=== PATIENT | female | born 1990 | race Caucasian/White ===

== ENCOUNTER 2017-01-27 12:21 | Emergency (ER) | payer MEDICAID ==
[2017-01-27 12:59] VITALS: BP 127/73
[2017-01-27] MEDS ORDERED: diphenhydrAMINE 50 MG/ML SDV IM ONE (13:21)
[2017-01-27] MEDS ORDERED: Ketorolac 60 MG/2 ML SDV IM ONE (13:21)
[2017-01-27] MEDS ORDERED: Ondansetron 4 MG Tab.DIS PO ONE (13:22)
--- NOTE | 2017-01-27 13:23 | EDM.PDOC ---
ED HPI HEADACHE COMPLAINT - General Chief Complaint: Headache Stated Complaint: Headache Time Seen by Provider: 01/27/17 13:00 Source of Information: Reports: Patient, RN notes reviewed History Limitations: Reports: No limitations - History of Present Illness INITIAL COMMENTS - FREE TEXT/NARRATIVE: 26 year old female presents to the ED with a 24 hour history of right sided headache, located behind her right eye and radiates around the right side of her head. She rates the pain 8/10. She has tried several OTC medications without relief. She has associated nausea, photophobia and phonophobia. No vomiting, weakness in extremities, loss of balance, vision changes, fever, chills, sinus problems, sore throat, recent illness. The headache came on gradually. She has a history of migraine headaches. - Related Data Allergies/ADRs: Allergies Allergy/AdvReac Type Severity Reaction Status Date / Time amoxicillin [Amoxicillin] Allergy Unknown Rash Verified 01/27/17 12:59 Penicillins Allergy Unknown Hives Verified 01/27/17 12:59 cefdinir Allergy Redness Verified 01/27/17 12:59 Home Meds: Home Meds ARIPiprazole [Abilify] 1 tab PO DAILY 01/27/17 [History] Omeprazole Magnesium [Prilosec Otc] 1 tab PO DAILY 01/27/17 [History] buPROPion [Wellbutrin] 1 tab PO DAILY 01/27/17 [History] Past Medical History - Past Health History Medical/Surgical History: Denies Medical/Surgical History HEENT History: Reports: Sinusitis Respiratory History: Reports: Asthma Gastrointestinal History: Reports: Helicobacter pylori, PUD Other Gastrointestinal History: history of stomach ulcer treated with omeprozale Genitourinary History: Reports: STD Other Genitourinary History: Positive HPV, history of chlamydia. 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 OB/BYN History: 02/12/2014 & 02-24-2016 Neurological History: Reports: Concussion Psychiatric History: Reports: Addiction, Anxiety, Bipolar, Depression Other Psychiatric History: Pt is on an antidepressant - Infectious Disease History Infectious Disease History: Reports: Human papilloma virus (HPV), Other (see below) - Past Surgical History HEENT Surgical History: Reports: Adenoidectomy, Naso-sinus surgery, Oral surgery , Tonsillectomy Female Surgical History: Reports: section Musculoskeletal Surgical History: Reports: Other (see below) Other Musculoskeletal Surgeries/Procedures:: cyst removed from wrist Social & Family History - Tobacco Use Smoking Status *Q: Current Every Day Smoker Years of Tobacco use: 8 Packs/Tins Daily: 0.5 Used Tobacco, but Quit: No Second Hand Smoke Exposure: Yes - Caffeine Use Caffeine Use: Reports: Coffee, Soda - Alcohol Use Days Per Week of Alcohol Use: 0 - Recreational Drug Use Recreational Drug Use: No Drug Use in Last 12 Months: No Recreational Drug Type: Reports: Cocaine, Ecstasy, Marijuana/Hashish, Methamphetamine, Oxycodone. Denies: Heroin Recreational Drug Use Frequency: Not Used In Over 6 Months - Sexual History Other Sexual History Comment: Has IUD - Living Situation & Occupation Living situation: Reports: single, with family (Mother, baby) Occupation: unemployed ED ROS GENERAL - Review of Systems Review Of Systems: See Below Constitutional: Reports: no symptoms. Denies: fever, chills HEENT: Reports: No symptoms. Denies: Eye pain, Sinus problem, Throat pain, Vision change Respiratory: Reports: No Symptoms. Denies: Shortness of Breath Cardiovascular: Reports: No symptoms. Denies: Chest pain GI/Abdominal: Reports: No symptoms, Nausea. Denies: Vomiting Musculoskeletal: Reports: no symptoms. Denies: neck pain Neurological: Reports: Headache. Denies: Confusion, Numbness, Syncope, Tingling , Difficulty Walking, Weakness - Physical Exam Exam: See Below Exam Limited By: No limitations General Appearance: alert, WD/WN, no apparent distress Eye Exam: bilateral eye: EOMI, normal inspection, PERRL Throat/Mouth: Normal inspection, Normal oropharynx Head Exam: atraumatic, normocephalic Neck: normal inspection, supple, non-tender, full range of motion. No: tender midline Respiratory/Chest: no respiratory distress, lungs clear, normal breath sounds Cardiovascular: regular rate, rhythm Neuro Exam (Abbreviated): alert, oriented, normal cognition, normal gait, no motor/sensory deficits, other (cerebellar testing intact) Course - Vital Signs Last Recorded V/S: Last Vital Signs Temp 97.6 F 01/27/17 12:55 Pulse 100 01/27/17 12:55 Resp 16 01/27/17 12:55 BP 127/73 01/27/17 12:55 Pulse Ox 100 01/27/17 12:55 - Orders/Labs/Meds Meds: Medications Discontinued Medications Generic Name Dose Route Start Last Admin Trade Name Romana PRN Reason Stop Dose Admin Diphenhydramine HCl 50 mg 01/27/17 13:21 01/27/17 13:44 Benadryl IM 01/27/17 13:22 50 mg ONETIME ONE Administration Ketorolac Tromethamine 60 mg 01/27/17 13:21 01/27/17 13:42 Toradol IM 01/27/17 13:22 60 mg ONETIME ONE Administration Ondansetron HCl 4 mg 01/27/17 13:22 01/27/17 13:42 Zofran Odt PO 01/27/17 13:23 4 mg ONETIME ONE Administration - Re-Assessments/Exams Free Text/Narrative Re-Assessment/Exam: Symptoms significantly improved with Toradol, Benadryl, and Zofran. Will discharge home. Encouraged to return if symptoms worsen. She has a ride home. Discharge instructions as documented. Departure - Departure Time of Disposition: 14:41 Disposition: Home, Self-Care 01 Condition: good Clinical Impression: Migraine Instructions: Migraine Headache, [id number] Referrals: Megan Jeffries PA-C [Primary Care Provider] - Forms: ED Department Discharge Additional Instructions: Migraine Go home and rest in a dark quiet environment today Drink plenty of clear fluids to stay hydrated Caffeine can help alleviate headaches if taken at onset Tylenol or Ibuprofen as needed for less severe pain Return to ER if your symptoms do not resolve or worsen No driving today due to sedating medications Often times, migraines are triggered by the foods we eat. Some common migraine triggers are: Alcohol Caffeine (or lack of caffeine if you drink caffeine daily) MSG (monosodium glutamate, food additive) Artificial sweeteners like aspartame Aged foods like cheese and preserved meats
== END 2017-01-27 14:45 | disposition home or self-care (01) ==
LOC: JD.ED 12:21
DX: G43.909 Migraine, unspecified, not intractable, without status migrainosus (principal); F17.210 Nicotine dependence, cigarettes, uncomplicated; Z98.890 Other specified postprocedural states; J45.909 Unspecified asthma, uncomplicated; F31.9 Bipolar disorder, unspecified; Z79.899 Other long term (current) drug therapy; Z88.0 Allergy status to penicillin; Z88.1 Allergy status to other antibiotic agents
CPT/HCPCS: 96372; 99284; A9270; J1200; J1885; 99283

== ENCOUNTER 2017-01-28 20:41 | Emergency (ER) | payer MEDICAID ==
[2017-01-28 20:56] VITALS: BP 129/79
--- NOTE | 2017-01-28 21:28 | EDM.PDOC ---
ED HPI HEADACHE COMPLAINT - General Chief Complaint: Headache Stated Complaint: HEADACHE POSS FEVER Time Seen by Provider: 01/28/17 21:03 Source of Information: Reports: Patient, Old records (ER visit 01-27-17) History Limitations: Reports: No limitations - History of Present Illness INITIAL COMMENTS - FREE TEXT/NARRATIVE: 26 year old female presents for evaluation and treatment of headache. Patient reports that the headache is an 8 or 9/10. She states it is located across her forehead and behind her eyes. Patient reports that this headache began on . She was seen in our ER yesterday. She was given Toradol, Benadryl and Zofran which relieved her symptoms. She states that she went home last night. She reports that last night she hit her head on the tailgate of her car. She did not experience a headache right away. She reports that her headache today began around noon. She states is similar to the headache she is yesterday however, it is worse. She reports associated symptoms of photophobia, phonophobia, dizziness and nausea. She denies any vomiting, double vision, cough , abdominal pain, diarrhea, urinary symptoms, neck pain or back pain. She states she has had a "fever" of 99.9 today. Treatment prior to arrival in the ER include Tylenol and Motrin. Patient reports her last menstrual period started 24 hours ago. She states that she bled for 24 hours before it subsided. 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 She had an hCG done which was negative at less than 1.0. She is currently on OCPs, however, she is unsure what type they are. 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 - Related Data Allergies/ADRs: Allergies Allergy/AdvReac Type Severity Reaction Status Date / Time amoxicillin [Amoxicillin] Allergy Unknown Rash Verified 01/28/17 20:56 Penicillins Allergy Unknown Hives Verified 01/28/17 20:56 cefdinir Allergy Redness Verified 01/28/17 20:56 Home Meds: Home Meds ARIPiprazole [Abilify] 1 tab PO DAILY 01/27/17 [History] Omeprazole Magnesium [Prilosec Otc] 1 tab PO DAILY 01/27/17 [History] buPROPion [Wellbutrin] 1 tab PO DAILY 01/27/17 [History] Past Medical History - Past Health History Medical/Surgical History: Denies Medical/Surgical History HEENT History: Reports: Sinusitis Respiratory History: Reports: Asthma Gastrointestinal History: Reports: Helicobacter pylori, PUD Other Gastrointestinal History: history of stomach ulcer treated with omeprozale Genitourinary History: Reports: STD Other Genitourinary History: Positive HPV, history of chlamydia. 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 OB/BYN History: 02/12/2014 & 02-24-2016 Neurological History: Reports: Concussion Psychiatric History: Reports: Addiction, Anxiety, Bipolar, Depression Other Psychiatric History: Pt is on an antidepressant - Infectious Disease History Infectious Disease History: Reports: Human papilloma virus (HPV), Other (see below) - Past Surgical History HEENT Surgical History: Reports: Adenoidectomy, Naso-sinus surgery, Oral surgery , Tonsillectomy Female Surgical History: Reports: section Musculoskeletal Surgical History: Reports: Other (see below) Other Musculoskeletal Surgeries/Procedures:: cyst removed from wrist Social & Family History - Family History Family Medical History: Noncontributory - Tobacco Use Smoking Status *Q: Current Every Day Smoker Years of Tobacco use: 8 Packs/Tins Daily: 0.5 Used Tobacco, but Quit: No Second Hand Smoke Exposure: Yes - Caffeine Use Caffeine Use: Reports: Coffee, Energy drinks, Soda - Alcohol Use Days Per Week of Alcohol Use: 0 - Recreational Drug Use Recreational Drug Use: No Drug Use in Last 12 Months: No Recreational Drug Type: Reports: Cocaine, Ecstasy, Marijuana/Hashish, Methamphetamine, Oxycodone. Denies: Heroin Recreational Drug Use Frequency: Not Used In Over 6 Months - Sexual History Other Sexual History Comment: Has IUD - Living Situation & Occupation Living situation: Reports: single, with family (Mother, baby) Occupation: unemployed ED ROS GENERAL - Review of Systems Review Of Systems: See Below Constitutional: Reports: fever (temp of 99.9), other (reports photophobia and phonophobia) HEENT: Reports: Vision change (blurry vision). Denies: Ear pain, Sinus problem , Throat pain Respiratory: Denies: Cough GI/Abdominal: Reports: Nausea. Denies: Abdominal pain, Constipation, Diarrhea, Vomiting : Reports: no symptoms. Denies: dysuria, hematuria Musculoskeletal: Denies: neck pain, back pain Neurological: Reports: Dizziness, Headache - Physical Exam Exam: See Below Exam Limited By: No limitations General Appearance: alert, WD/WN, no apparent distress Eye Exam: bilateral eye: PERRL Ears: normal external exam, normal canal, hearing grossly normal, normal TMs Nose: normal inspection Throat/Mouth: Normal inspection, Normal lips, Normal voice, No airway compromise Head Exam: scalp swelling. No: scalp lacerations, scalp abrasions, scalp hematoma, scalp tenderness, facial abrasions, facial ecchymosis, facial lacerations, facial swelling, facial tenderness Neck: normal inspection, supple, non-tender, full range of motion Respiratory/Chest: no respiratory distress, lungs clear, normal breath sounds Cardiovascular: normal peripheral pulses, regular rate, rhythm, no murmur GI/Abdominal: normal bowel sounds, soft, non tender Neuro Exam (Abbreviated): alert, oriented, normal cognition, normal gait Psychiatric: normal affect, normal mood Skin Exam: Warm, Dry, Normal color Course - Vital Signs Last Recorded V/S: Last Vital Signs Temp 37.6 C 01/28/17 20:51 Pulse 79 01/28/17 20:51 Resp 18 01/28/17 20:51 BP 129/79 01/28/17 20:51 Pulse Ox 99 01/28/17 20:51 - Orders/Labs/Meds Orders: Active Orders 24 hr Category Date Time Status Head wo Cont [CT] Stat Exams 01/28/17 21:21 Taken Meds: Medications Discontinued Medications Generic Name Dose Route Start Last Admin Trade Name Romana PRN Reason Stop Dose Admin Acetaminophen/Butalbital/Caffeine 1 tab 01/28/17 23:02 Fioricet 325-50-40 Mg PO 01/28/17 23:03 NOW STA Diphenhydramine HCl 50 mg 01/28/17 21:48 01/28/17 22:03 Benadryl IM 01/28/17 21:49 50 mg ONETIME ONE Administration Ketorolac Tromethamine 60 mg 01/28/17 21:48 01/28/17 22:01 Toradol IM 01/28/17 21:49 60 mg ONETIME ONE Administration Ondansetron HCl 4 mg 01/28/17 21:48 01/28/17 22:00 Zofran Odt PO 01/28/17 21:49 4 mg ONETIME ONE Administration Sumatriptan Succinate 25 mg 01/28/17 22:26 01/28/17 22:37 Imitrex PO 01/28/17 22:27 25 mg ONETIME ONE Administration - Radiology Interpretation Free Text/Narrative:: Head Ct without contrast impression per Vrad: No acute intracranial pathology. CT Results Date: 01/28/17 - Re-Assessments/Exams Free Text/Narrative Re-Assessment/Exam: 01/28/17 21:32 Given that the patient had head trauma last night and now has blurry vision, nausea and a headache not relieved by tylenol or ibuprofen I feel we should do a noncontrast head CT to ensure headache is not from trauma. 01/28/17 22:[address] results with the patient. IM toradol, benadryl and zofran ordered. 01/28/17 22:23 Headache now a 6/10. She is resting comfortably. No obvious distress. Will try imitrex for headache relief. Patient is on wellbutrin, therefore with the seizure threshold already lowered, I am hesistant to give haldol per our protocol. 01/28/17 23:06 Reports headache is a 6/10. She is resting comfortably. No obvious distress. She states she would like to try one more medication and will then go home. Will try fioricet. I will give her 1 pill to take at home. I searched the patient on the drug registry. 11 prescriptions for controlled substances within the last year (mostly benzos). Most recent Rx : xanax 0.5mg # 20 filled on 11-17-16. 01/28/17 23:28 Patient to be sent home with 1 tab of fioricet. Discharge instructions as documented. Departure - Departure Time of Disposition: 23:23 Disposition: Home, Self-Care 01 Condition: fair Clinical Impression: Tension headache Instructions: Tension Headache, [id number] Referrals: Megan Jeffries PA-C [Primary Care Provider] - Forms: ED Department Discharge Additional Instructions: Go home and rest in a dark quiet room. may take the Fioricet tonight if you continue to have headaches when you return home. Follow up with primary care provider if your symptoms continue. Please return to the ER should your symptoms change or worsen. - My Orders Last 24 Hours: My Active Orders 01/28/17 21:21 Head wo Cont [CT] Stat - Assessment/Plan Last 24 Hours: My Active Orders 01/28/17 21:21 Head wo Cont [CT] Stat
[2017-01-28] MEDS ORDERED: Ondansetron 4 MG Tab.DIS PO ONE (21:48)
[2017-01-28] MEDS ORDERED: Ketorolac 60 MG/2 ML SDV IM ONE (21:48)
[2017-01-28] MEDS ORDERED: diphenhydrAMINE 50 MG/ML SDV IM ONE (21:48)
[2017-01-28] MEDS ORDERED: SUMAtriptan 50 MG Tab PO ONE (22:26)
[2017-01-28] MEDS ORDERED: Acetaminophen/Butalbital/Caffeine 325-50-40 MG Tab PO STA (23:02)
--- NOTE | 2017-01-31 10:35 | CT ---
Head CT Technique: Multiple axial sections through the brain were obtained. Intravenous contrast was not utilized. Comparison: Previous head CT study of 10/17/12. Findings: Ventricles along with basal cisterns and sulci over the convexities are within normal limits for the patient's age. No abnormal parenchymal densities are seen. No evidence of intracranial hemorrhage. No midline shift or mass effect is seen. Bone window settings were reviewed which show the visualized sinuses to appear clear. No acute calvarial abnormality is identified. Impression: 1. Nothing acute identified on noncontrast head CT study. Findings are stable from previous exam. Diagnostic code #1 I agree with preliminary report issued by [facility] (report finalized on 01/28/17, 10:46 PM Central Time)
== END 2017-01-28 23:33 | disposition home or self-care (01) ==
LOC: JD.ED 20:41
DX: G44.209 Tension-type headache, unspecified, not intractable (principal); J45.909 Unspecified asthma, uncomplicated; F41.9 Anxiety disorder, unspecified; F31.9 Bipolar disorder, unspecified; F17.210 Nicotine dependence, cigarettes, uncomplicated; Z79.899 Other long term (current) drug therapy; Z88.1 Allergy status to other antibiotic agents; Z88.0 Allergy status to penicillin; Z98.890 Other specified postprocedural states
CPT/HCPCS: 70450; 96372; 99284; A9270; J1200; J1885; 99283

== ENCOUNTER 2017-02-02 19:14 | Emergency (ER) | payer MEDICAID ==
--- NOTE | 2017-02-02 19:24 | EDM.PDOC ---
ED HPI GENERAL MEDICAL PROBLEM - General Chief Complaint: Headache Stated Complaint: HEADACHE Time Seen by Provider: 02/02/17 19:24 - History of Present Illness INITIAL COMMENTS - FREE TEXT/NARRATIVE: 26-year-old female returns emergency room with a headache. This is mostly left- sided behind her eye. Patient is been having on-and-off headaches for the last couple weeks she had a head injury in between CT exam was normal. This headache has escalated over the last couple of days. Patient recently been seen in the clinic and has been started on Imitrex she used 2 doses earlier today without any success. Patient denies any fevers or chills has not had any other symptoms she has a little bit of neck discomfort but does not feel this is contributing to her headaches. Patient has some nausea without vomiting she has some photophobia. She seems to feel better with her neck flexed forward in the sitting position. Headache Pain Score (Numeric/FACES): 10 - Related Data Allergies Allergy/AdvReac Type Severity Reaction Status Date / Time amoxicillin [Amoxicillin] Allergy Unknown Rash Verified 02/02/17 19:23 Penicillins Allergy Unknown Hives Verified 02/02/17 19:23 cefdinir Allergy Redness Verified 02/02/17 19:23 Home Meds: Home Meds ARIPiprazole [Abilify] 1 tab PO DAILY 01/27/17 [History] Omeprazole Magnesium [Prilosec Otc] 1 tab PO DAILY 01/27/17 [History] buPROPion [Wellbutrin] 1 tab PO DAILY 01/27/17 [History] Past Medical History - Past Health History Medical/Surgical History: Denies Medical/Surgical History HEENT History: Reports: Sinusitis Respiratory History: Reports: Asthma Gastrointestinal History: Reports: Helicobacter pylori, PUD Other Gastrointestinal History: history of stomach ulcer treated with omeprozale Genitourinary History: Reports: STD Other Genitourinary History: Positive HPV, history of chlamydia. 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: 02/12/2014 & 02-24-2016 Neurological History: Reports: Concussion Psychiatric History: Reports: Addiction, Anxiety, Bipolar, Depression Other Psychiatric History: Pt is on an antidepressant - Infectious Disease History Infectious Disease History: Reports: Human papilloma virus (HPV), Other (see below) - Past Surgical History HEENT Surgical History: Reports: Adenoidectomy, Naso-sinus surgery, Oral surgery , Tonsillectomy Female Surgical History: Reports: section Musculoskeletal Surgical History: Reports: Other (see below) Other Musculoskeletal Surgeries/Procedures:: cyst removed from wrist Social & Family History - Family History Family Medical History: Noncontributory - Tobacco Use Smoking Status *Q: Current Every Day Smoker Years of Tobacco use: 8 Packs/Tins Daily: 0.5 Used Tobacco, but Quit: No Second Hand Smoke Exposure: Yes - Caffeine Use Caffeine Use: Reports: Coffee, Energy drinks, Soda - Alcohol Use Days Per Week of Alcohol Use: 0 - Recreational Drug Use Recreational Drug Use: No Drug Use in Last 12 Months: No Recreational Drug Type: Reports: Cocaine, Ecstasy, Marijuana/Hashish, Methamphetamine, Oxycodone. Denies: Heroin Recreational Drug Use Frequency: Not Used In Over 6 Months - Sexual History Other Sexual History Comment: Has IUD - Living Situation & Occupation Living situation: Reports: single, with family (Mother, baby) Occupation: unemployed ED [facility] GENERAL - Review of Systems Review Of Systems: See Below Constitutional: Reports: no symptoms. Denies: fever, chills HEENT: Reports: Other (Photophobia). Denies: Ear pain, Eye pain, Vertigo Respiratory: Reports: No Symptoms Cardiovascular: Reports: No symptoms Endocrine: Reports: no symptoms GI/Abdominal: Reports: No symptoms : Reports: no symptoms Musculoskeletal: Reports: no symptoms Neurological: Reports: Headache. Denies: Confusion, Dizziness, Numbness, Seizure, Syncope, Tingling, Tremors, Difficulty Walking, Weakness Psychiatric: Denies: Agitation, Anxiety, Depression - Physical Exam Exam: See Below Exam Limited By: No limitations General Appearance: alert, no apparent distress Eye Exam: bilateral eye: EOMI, normal inspection, PERRL Ears: normal external exam, normal canal, hearing grossly normal, normal TMs Nose: normal inspection, normal mucosa, no blood Throat/Mouth: Normal inspection, Normal lips, Normal teeth, Normal gums, Normal oropharynx, Normal voice, No airway compromise Head Exam: atraumatic, normocephalic Neck: normal inspection, supple, non-tender, full range of motion, other (He has some posterior muscle tightness but this is nontender she does not have tenderness at the base of skull with paraspinous muscles originate). No: lymphadenopathy (L), lymphadenopathy (R) Respiratory/Chest: no respiratory distress, lungs clear, normal breath sounds Cardiovascular: regular rate, rhythm, no edema, no murmur GI/Abdominal: Normal Bowel Sounds, Soft, Non-Tender Neuro Exam (Abbreviated): other (Cranial nerves II through XII grossly intact all muscle groups the upper and lower extremities are equal and appropriate bilaterally deep tendon reflexes are equal and appropriate at the brachial radialis and patella tendons bilaterally cerebellar testing is entirely within normal limits patient has a steady gait and moves without difficulty) Course - Vital Signs Last Recorded V/S: Last Vital Signs Temp 36.5 C 02/02/17 19:24 Pulse 100 02/02/17 19:24 Resp 18 02/02/17 19:24 BP 148/94 H 02/02/17 19:24 Pulse Ox 98 02/02/17 19:24 - Orders/Labs/Meds Meds: Medications Discontinued Medications Generic Name Dose Route Start Last Admin Trade Name Freq PRN Reason Stop Dose Admin Diphenhydramine HCl 50 mg 02/02/17 20:04 02/02/17 20:18 Benadryl IVPUSH 02/02/17 20:05 50 mg ONETIME ONE Administration Haloperidol Lactate 5 mg 02/02/17 20:55 02/02/17 20:58 Haldol IVPUSH 02/02/17 20:56 5 mg ONETIME ONE Administration Lactated Ringer's 1,000 mls @ 999 mls/hr 02/02/17 20:04 02/02/17 20:17 Ringers, Lactated IV 02/02/17 21:04 999 mls/hr .BOLUS ONE Administration Ketorolac Tromethamine 30 mg 02/02/17 20:48 Toradol IVPUSH 02/02/17 20:49 ONETIME ONE Ondansetron HCl 4 mg 02/02/17 20:04 02/02/17 20:17 Zofran IVPUSH 02/02/17 20:05 4 mg ONETIME ONE Administration - Re-Assessments/Exams Free Text/Narrative Re-Assessment/Exam: 02/02/17 20:49 Patient is getting some relief but not to care home. She had a negative hCG yesterday and another one of last week and she denies any recent sexual activity. We will give her a dose of Toradol. 02/02/17 20:55 Patient has not done well with Toradol in the past this will be DC'd. We'll try 5 mg of Haldol. 02/02/17 21:38 Patient received the Haldol and is doing much better she still is having a lot of sinus pressure she's got significant pain with percussion worse in the left maxillary and frontal regions patient is allergic to penicillin generally has done okay on Zithromax. Departure - Departure Time of Disposition: 21:39 Disposition: Home, Self-Care 01 Clinical Impression: Migraine, Sinusitis - Discharge Information Forms: ED Department Discharge Additional Instructions: Return to the emergency room with any questions or problems. Go home and get some sleep. You have been started on Zithromax. Take 2 pills this evening and one pill nightly until all gone. Followup in the clinic next week for recheck.
[2017-02-02 19:27] VITALS: BP 148/94
[2017-02-02] MEDS ORDERED: Lactated Ringers 1,000 ML IV ONE (20:04)
[2017-02-02] MEDS ORDERED: diphenhydrAMINE 50 MG/ML SDV IVPUSH ONE (20:04)
[2017-02-02] MEDS ORDERED: Ondansetron 4 MG/2 ML SDV IVPUSH ONE (20:04)
[2017-02-02] MEDS ORDERED: Ketorolac 30 MG/ML SDV IVPUSH ONE (20:48)
[2017-02-02] MEDS ORDERED: Haloperidol Lactate 5 MG/ML SDV IVPUSH ONE (20:55)
== END 2017-02-02 22:00 | disposition home or self-care (01) ==
LOC: JD.ED 19:14
DX: G43.909 Migraine, unspecified, not intractable, without status migrainosus (principal); J32.9 Chronic sinusitis, unspecified; J45.909 Unspecified asthma, uncomplicated; F31.9 Bipolar disorder, unspecified; F41.9 Anxiety disorder, unspecified; F17.210 Nicotine dependence, cigarettes, uncomplicated; Z79.899 Other long term (current) drug therapy; Z98.890 Other specified postprocedural states; Z88.0 Allergy status to penicillin; Z88.1 Allergy status to other antibiotic agents
CPT/HCPCS: 96361; 96374; 96375; 99284; J1200; J1630; J2405; J7120

== ENCOUNTER 2017-03-15 00:01 | Emergency (ER) | payer MEDICAID ==
[2017-03-15 00:17] VITALS: BP 126/81
--- NOTE | 2017-03-15 00:41 | EDM.PDOC ---
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 The pain has been coming and going. She describes it as "crampy". Pain is made worse if she lies in the left decubitus position, and with sexual intercourse. Nothing makes it better. She has had a decreased appetite, but no recent fever, nausea, vomiting, constipation, diarrhea, or urinary symptoms. The patient states that she is on a new control pill, which causes her to have some spotting nearly weekly. She is not sure when her last menstrual period was, stating that she had one day of spotting about 10 days ago. She states that she is compliant with her control pills. She states that her last sexual intercourse was 3 days ago, and prior to that about 3 weeks ago. She has not taken a home test. Her PCP is Megan Jeffries. Her pipe straightener is Dr. Ramirez. Right Lower Abdomen Pain Score (Numeric/FACES): 4 - Related Data Allergies Allergy/AdvReac Type Severity Reaction Status Date / Time amoxicillin [Amoxicillin] Allergy Unknown Rash Verified 03/15/17 00:17 Penicillins Allergy Unknown Hives Verified 03/15/17 00:17 cefdinir Allergy Redness Verified 03/15/17 00:17 Home Meds: Home Meds ARIPiprazole [Abilify] 1 tab PO DAILY 01/27/17 [History] Omeprazole Magnesium [Prilosec Otc] 1 tab PO DAILY 01/27/17 [History] buPROPion [Wellbutrin] 1 tab PO DAILY 01/27/17 [History] ALPRAZolam [Xanax] 0.5 mg PO DAILY 03/15/17 [History] Oral Contraceptive. 03/15/17 [History] Past Medical History Gastrointestinal History: Reports: PUD Genitourinary History: Reports: STD Other Genitourinary History: Positive HPV, history of chlamydia. 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 pylori) - Past Surgical History HEENT Surgical History: Reports: Adenoidectomy, Naso-Sinus Surgery, Oral Surgery (Mcdonald teeth extraction), Tonsillectomy Female Surgical History: Reports: Section (02/12/2014 & 02/24/2016) Musculoskeletal Surgical History: Reports: Other (See Below) (Right hand cyst excision) Social & Family History - Family History Family Medical History: Noncontributory - Tobacco Use Smoking Status *Q: Current Every Day Smoker Years of Tobacco use: 10 Packs/Tins Daily: 0.5 Used Tobacco, but Quit: No - Caffeine Use Caffeine Use: Reports: Coffee, Soda - Alcohol Use Alcohol Use History: Yes Alcohol Use Frequency: Rarely - Recreational Drug Use Recreational Drug Use: Yes Drug Use in Last 12 Months: No Recreational Drug Type: Reports: Cocaine, Ecstasy, Marijuana/Hashish, Methamphetamine, Oxycodone. 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[employer]) ED ROS GENERAL - Review of Systems Review Of Systems: See Below Constitutional: Reports: No Symptoms HEENT: Reports: No Symptoms Respiratory: Reports: No Symptoms Cardiovascular: Reports: No Symptoms Endocrine: Reports: No Symptoms GI/Abdominal: Reports: No Symptoms : Reports: No Symptoms Musculoskeletal: Reports: No Symptoms Skin: Reports: No Symptoms Neurological: Reports: No Symptoms Psychiatric: Reports: No Symptoms Hematologic/Lymphatic: Reports: No Symptoms Immunologic: Reports: No Symptoms ED EXAM, GENERAL - Physical Exam Exam: See Below Exam Limited By: No Limitations General Appearance: Alert, WD/WN, No Apparent Distress Eye Exam: Bilateral Eye: Normal Inspection Ears: Normal External Exam, Hearing Grossly Normal Ear Exam: Bilateral Ear: Auricle Normal Nose: Normal Inspection, No Blood Throat/Mouth: Normal Inspection, Normal Lips, Normal Voice, No Airway Compromise Head: Atraumatic, Normocephalic Neck: Normal Inspection, Full Range of Motion Respiratory/Chest: No Respiratory Distress, Lungs Clear, Normal Breath Sounds, No Accessory Muscle Use Cardiovascular: Normal Peripheral Pulses, Regular Rate, Rhythm, No Gallop, No JVD, No Murmur, No Rub Peripheral Pulses: 4+: Radial (L), Radial (R) GI/Abdominal: Normal Bowel Sounds, Soft, No Organomegaly, No Distention, No Abnormal Bruit, No Mass, Tender (Mild, right lower quadrant. Essentially nontender elsewhere.) (Female) Exam: Deferred Rectal (Female) Exam: Deferred Back Exam: Normal Inspection, Full Range of Motion. No: CVA Tenderness (L), CVA Tenderness (R) Extremities: Normal Inspection, Normal Range of Motion, No Pedal Edema, Normal Capillary Refill Neurological: Alert, Oriented, Normal Cognition, No Motor/Sensory Deficits Psychiatric: Normal Affect Skin Exam: Warm, Dry, Intact, Normal Color, No Rash Lymphatic: No Adenopathy Course - Vital Signs Last Recorded V/S: Last Vital Signs Temp 36.6 C 03/15/17 00:11 Pulse 99 03/15/17 00:11 Resp 18 03/15/17 00:11 BP 126/81 03/15/17 00:11 Pulse Ox 100 03/15/17 00:11 - Orders/Labs/Meds Labs: Laboratory Tests 03/15/17 03/15/17 Range/Units 00:40 00:40 Urine Color Dark yellow (Yellow) Urine Appearance Clear (Clear) Urine pH 7.0 (5.0-8.0) Ur Specific [place] 1.020 (1.005-1.030) Urine Protein 1+ H (Negative) Urine Glucose (UA) Negative (Negative) Urine Ketones Negative (Negative) Urine Occult Blood Negative (Negative) Urine Nitrite Negative (Negative) Urine Bilirubin 1+ H (Negative) Urine Urobilinogen 1.0 (0.2-1.0) Ur Leukocyte Esterase Negative (Negative) Urine RBC 0-5 (0-5) /hpf Urine WBC 0-5 (0-5) /hpf Ur Epithelial Cells 0-5 (0-5) /hpf Urine Bacteria Not seen (FEW) /hpf Urine Mucus Not seen (FEW) /hpf Urine HCG, Qual Negative (NEGATIVE) - Re-Assessments/Exams Free Text/Narrative Re-Assessment/Exam: 03/15/17 01:49 Test results discussed with the patient. The patient's urinalysis is negative for urinary tract infection, and shows no blood, essentially ruling out any kidney stone. Urine test is negative. Because of the patient's symptoms is not clear, although due to an ovarian cyst. As that is not a medical emergency, I am not going to call the groundwater monitoring technician in. The patient states that she can follow-up with her pipe straightener, Dr. Ramirez, in the morning. Departure - Departure Time of Disposition: 01:50 Disposition: Home, Self-Care 01 Condition: Good Clinical Impression: Abdominal pain of unknown etiology - Discharge Information Referrals: Megan Jeffries PA-C [Primary Care Provider] - Milad Ramirez MD [Physician] - Forms: ED Department Discharge Additional Instructions: You were seen in the emergency room for right flank pain radiating to her right lower abdomen, for the past 10 days. Workup in the ER included a urinalysis and urine test. Both were normal. You do not have a urinary tract infection. A kidney stone is HIGHLY UNLIKELY. You are not . The exact cause of your pain is unclear. It is possible that you have an ovarian cyst. Please follow-up with your Plating Engineer, Dr. Ramirez, at the next available appointment. If any other problems, please do not hesitate to return to the ER.
== END 2017-03-15 02:00 | disposition home or self-care (01) ==
LOC: JD.ED 00:01
DX: R10.31 Right lower quadrant pain (principal); F41.9 Anxiety disorder, unspecified; F31.9 Bipolar disorder, unspecified; F17.210 Nicotine dependence, cigarettes, uncomplicated; Z90.49 Acquired absence of other specified parts of digestive tract; Z88.1 Allergy status to other antibiotic agents; Z88.0 Allergy status to penicillin; Z79.899 Other long term (current) drug therapy
CPT/HCPCS: 81001; 81025; 99282; 99284

== ENCOUNTER 2017-04-19 08:17 | Day surgery (SDC) | payer MEDICAID ==
[~2017-04-19 08:17] MED LIST: Lactated Ringers 1,000 ML IV SCH; Lidocaine 1%/Sod Bicarbonate in NS 8.4% 1 ML Syringe PRN; Sodium Chloride 0.9% 10 ML Syringe FLUSH PRN
[2017-04-19] MEDS ORDERED: Bupivacaine 0.5% 30 ML SDV ONE (08:21)
--- NOTE | 2017-04-19 08:41 | PCM.PREANE ---
Preanesthetic Assessment - Procedure Proposed Procedure: Diagnostic Laparoscopy - Anesthesia/Transfusion/Family Hx Anesthesia History: Prior Anesthesia Without Reaction Family History of Anesthesia Reaction: No Transfusion History: No Prior Transfusion(s) Intubation History: Unknown - Review of Systems General: No Symptoms Pulmonary: Other (asthma- uses inhaler daily ) Cardiovascular: No Symptoms Gastrointestinal: Other (GERD) Neurological: No Symptoms Other: Reports: None, Depression, Anxiety - Physical Assessment NPO Status Date: 04/18/17 NPO Status Time: 20:30 Pulse: 94 O2 Sat by Pulse Oximetry: 97 Respiratory Rate: 16 Blood Pressure: 119/67 Temperature: 37.0 C Height: 1.52 m Weight: 63.503 kg ASA Class: 2 Mental Status: Alert & Oriented x3 Dentition: Reports: Broken Tooth/Teeth (left top front tooth chipped ) Thyro-Mental Finger Breadths: 3 Mouth Opening Finger Breadths: 3 ROM/Head Extension: Full (3) Lungs: Clear to Auscultation, Normal Respiratory Effort Cardiovascular: Regular Rate, Murmurs (very slight ) - Lab Values: Laboratory Last Values Urine HCG, Qual Negative (NEGATIVE) 04/18/17 13:48 - Allergies Allergies/Adverse Reactions: Allergies Allergy/AdvReac Type Severity Reaction Status Date / Time amoxicillin [Amoxicillin] Allergy Unknown Rash Verified 04/18/17 16:24 Penicillins Allergy Unknown Hives Verified 04/18/17 16:24 [email or web address] Allergy Redness Verified 04/18/17 16:24 - Blood Blood Available: No Product(s) Available: None - Anesthesia Plan Pre-Op Medication Ordered: None - Acknowledgements Anesthesia Type Planned: General Anesthesia Pt an Appropriate Candidate for the Planned Anesthesia: Yes Alternatives and Risks of Anesthesia Discussed w Pt/Guardian: Yes Pt/Guardian Understands and Agrees with Anesthesia Plan: Yes PreAnesthesia Questionnaire - Past Health History Medical/Surgical History: Denies Medical/Surgical History HEENT History: Reports: Allergic Rhinitis, Sinusitis, Other (See Below) Other HEENT History: wears glasses Cardiovascular History: Reports: None Respiratory History: Reports: Asthma Gastrointestinal History: Reports: PUD Other Gastrointestinal History: history of stomach ulcer treated with omeprozale Genitourinary History: Reports: Renal Calculus, STD Other Genitourinary History: Positive HPV, history of chlamydia. 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: Other OB/BYN History: 02/12/2014 & 02-24-2016, pelvic pain, breakthrough bleeing on OCPs, dysuria, irregular menses, menorrhagia Musculoskeletal History: Reports: Arthritis Neurological History: Reports: Concussion, Migraines Psychiatric History: Reports: Addiction, Anxiety, Bipolar, Depression Other Psychiatric History: history of ETOH abuse Endocrine/Metabolic History: Reports: None Hematologic History: Reports: Anemia Immunologic History: Reports: None Oncologic (Cancer) History: Reports: None Dermatologic History: Reports: None - Infectious Disease History Infectious 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), Other (See Below) (H. pylori) - Past Surgical History Head Surgeries/Procedures: Reports: None HEENT Surgical History: Reports: Adenoidectomy, Naso-Sinus Surgery, Oral Surgery , Tonsillectomy Other HEENT Surgeries/Procedures: Septal deviation surgery, addenoidectomy, wisdom teeth removal GI Surgical History: Reports: None Female Surgical History: Reports: Section Musculoskeletal Surgical History: Reports: Other (See Below) Other Musculoskeletal Surgeries/Procedures:: cyst removed from wrist - SUBSTANCE USE Smoking Status *Q: Current Every Day Smoker (0.5ppd for 8 years) Tobacco Use Within Last Twelve Months: Cigarettes Second Hand Smoke Exposure: Yes Days Per Week of Alcohol Use: 0 Recreational Drug Use History: No Other Recreational Drug Type: Patient has been clean for 5-6 years - HOME MEDS Home Medications: Home Meds ALPRAZolam [Xanax] 0.5 mg PO BID PRN 04/18/17 [History] ARIPiprazole [Abilify] 10 mg PO DAILY 04/18/17 [History] Albuterol [Proair HFA] 1 puff INH Q4H PRN 04/18/17 [History] Norgestrel-Ethinyl Estradiol [Elinest-28 Tablet] 1 tab PO DAILY 04/18/17 [ History] Omeprazole Magnesium [Prilosec] 10 mg PO DAILY 04/18/17 [History] buPROPion [Wellbutrin XL] 150 mg PO DAILY 04/18/17 [History] - CURRENT (IN HOUSE) MEDS Current Meds: Current Medications Lactated Ringer's (Ringers, Lactated) 1,000 mls @ 125 mls/hr IV ASDIRECTED JENNIFER Stop: 04/19/17 23:00 Lidocaine/Sodium Bicarbonate (Buffered Lidocaine 1% In Ns 8.4%) 0.25 ml .XX ONETIME PRN PRN Reason: Prior to IV Start Stop: 04/19/17 18:00 Sodium Chloride (Saline Flush) 10 ml FLUSH ASDIRECTED PRN PRN Reason: Keep Vein Open Stop: 04/19/17 18:00 Discontinued Medications Bupivacaine HCl (Marcaine 0.5%) Confirm Administered Dose 30 ml .ROUTE .[email or web address] [employer] ONE Stop: 04/19/17 08:22
[2017-04-19] MEDS ORDERED: Rocuronium 50 MG/5 ML Vial ONE (08:59)
[2017-04-19] MEDS ORDERED: Propofol 200 MG/20 ML SDV ONE (08:59)
[2017-04-19] MEDS ORDERED: Ondansetron 4 MG/2 ML SDV ONE (08:59)
[2017-04-19] MEDS ORDERED: Dexamethasone 4 MG/ML SDV ONE (08:59)
[2017-04-19] MEDS ORDERED: Lidocaine 1% 4 ML ONE (08:59)
[2017-04-19] MEDS ORDERED: Midazolam 1 MG/ML 2 ML SDV ONE (08:59)
[2017-04-19] MEDS ORDERED: Scopolamine 1.5 MG Transdermal Patch TRDERM ONE (09:00)
[2017-04-19] MEDS ORDERED: fentaNYL 250 MCG/5 ML SDV ONE (09:00)
[2017-04-19] MEDS ORDERED: ceFAZolin 1 GM Vial ONE (09:02)
[2017-04-19] MEDS ORDERED: Lactated Ringers 1,000 ML ONE (09:48)
[2017-04-19] MEDS ORDERED: HYDROmorphone 1 MG/ML Syringe ONE (09:51)
[2017-04-19] MEDS ORDERED: Neostigmine Methylsulfate 1 MG/ML 5 ML Syringe ONE (09:56)
[2017-04-19] MEDS ORDERED: Ketorolac 30 MG/ML SDV ONE (10:01)
[2017-04-19] MEDS ORDERED: Ondansetron 4 MG/2 ML SDV IVPUSH PRN ×2 (10:02→10:15)
--- NOTE | 2017-04-19 10:12 | PCM.OPNOTE ---
- General Post-Op/Procedure Note Date of Surgery/Procedure: 04/19/17 Operative Procedure(s): Laparoscopy, lysis of pelvic adhesions Findings: Patient had omental adhesion to the anterior abdominal wall. Uterus tubes and ovaries were within normal limits. She did have a functional cyst which appeared to be a hemorrhagic corpus luteum cyst-left ovary. Anterior posterior cul-de-sacs were normal the exception that patient had varicosities present somewhat greater on the right side and the left side. The appendix appeared to be noninflamed and normal in appearance. The liver edge right and left lobe are normal. Patient's gallbladder appeared noninflamed. Pre Op Diagnosis: 1. Pelvic pain. 2. Irregular intermenstrual bleeding. 3. Dyspareunia Post-Op Diagnosis: Same Anesthesia Technique: General ET Tube Other Anesthesia Type: Marcaine 0.5% locally in both incisionstotal- Primary Surgeon: Milad Ramirez Secondary Surgeon: Radha Pepe Anesthesia Provider: Tee Lobato Fluid Replacement, Intraop: 1,000 (Lactated Ringer's) Output, Urine Amount: 200 EBL in mLs: 5 Drain/Tube Comments:: Indwelling bladder catheter during surgery only. Removed at the end of the case. Complications: None Condition: Good Free Text/Narrative:: Surgery duration: 28 minutes Procedure: The patient is taken to the operating room and placed in a supine position on the operating table. General endotracheal anesthesia was administered. Should be noted patient received 2 g of Ancef preoperatively for infection prophylaxis after a test dose of Ancef because of a history of penicillin allergy. She had sequential compression stockings in place for DVT prophylaxis. After adequate anesthesia patient was placed in a dorsal lithotomy position, prepped and draped in usual fashion. The weighted speculum was placed in the vagina. Stallworth catheter was placed resulting in clear yellow urine. The cervix was visualized, grasped anteriorly with a single-tooth tenaculum. The cervix is then minimally dilated and sounded to 9 cm. The uterine manipulator was placed without incident. The patient was returned to the supine position with feet in the modified Daily stirrups. Laparoscopy was then performed. Infraumbilical incision and suprapubic incision sites were then developed. The infraumbilical site in a longitudinal fashion following antibody line and the pubic site midpoint of her scar. Both were infiltrated with approximately 2-3 mL of Marcaine 0.5%. The verres needle was then placed and pneumo peritoneum was established using 2 L of CO2. A 5 mm Laparoscopic port was then placed in the infraumbilical area. Scope was placed and under direct visualization the suprapubic port site was developed. This apparent that there was omental adhesion to the anterior incision previously made during section operation. This is taken down using blunt dissection. No bleeding was encountered. The pelvis was evaluated with findings as described above. At this point the procedure was discontinued. The lower sleeve was removed under direct visualization. The upper sleeve was removed after reversal of the pneumoperitoneum. Both incision sites were closed with 3- 0 Monocryl suture in a subcuticular fashion. The skin was further approximated both sites with Dermabond skin glue. The indwelling bladder catheter and the uterine manipulator removed without problems. Patient was returned to the supine position and awakened from general endotracheal anesthesia. She tolerated procedure well and left the operating room in good condition
[2017-04-19] MEDS ORDERED: Meperidine PF 50 MG/ML Syringe IVPUSH PRN (10:15)
[2017-04-19] MEDS ORDERED: diphenhydrAMINE 50 MG/ML SDV IVPUSH PRN (10:15)
--- NOTE | 2017-04-19 10:15 | PCM.POSTAN ---
POST ANESTHESIA ASSESSMENT - MENTAL STATUS Mental Status: Alert, Oriented - VITAL SIGNS Pulse Rate: 119 SaO2: 96 Resp Rate: 13 Blood Pressure: 131/82 Temperature: 36.6 C - RESPIRATORY Respiratory Status: respiratory rate WNL, Airway Patent, O2 Saturation Stable, Supplemental Oxygen - CARDIOVASCULAR CV Status: Pulse Rate WNL, Blood Pressure Stable - GASTROINTESTINAL GI Status: No Symptoms - PAIN Pain Score: 7 (fentanyl given ) - POST OP HYDRATION Hydration Status: Adequate & Stable
[2017-04-19] MEDS ORDERED: fentaNYL 100 MCG/2 ML SDV IVPUSH PRN (10:30)
[2017-04-19] MEDS ORDERED: HYDROmorphone 0.5 MG/0.5 ML Syringe IVPUSH PRN (10:30)
--- NOTE | 2017-04-19 13:08 | PCM48HPAN ---
Post Anesthesia Note - EVALUATION WITHIN 48HRS OF ANESTHETIC Vital Signs in Normal Range: Yes Patient Participated in Evaluation: Yes Respiratory Function Stable: Yes Airway Patent: Yes Cardiovascular Function Stable: Yes Hydration Status Stable: Yes Pain Control Satisfactory: Yes Nausea and Vomiting Control Satisfactory: Yes Mental Status Recovered: Yes
[2017-04-19 14:06] VITALS: BP 118/72
== END 2017-04-19 13:00 | disposition home or self-care (01) ==
LOC: JD.SDS 08:17
PROVIDERS: ATTEND Obstetrics & Gynecology
PROC: 0DNS4ZZ (ICD-10-PCS; principal; 2017-04-19)
DX: R10.2 Pelvic and perineal pain (principal); N92.5 Other specified irregular menstruation; N94.10 Unspecified dyspareunia; N73.6 Female pelvic peritoneal adhesions (postinfective); N83.292 Other ovarian cyst, left side; Z88.0 Allergy status to penicillin
CPT/HCPCS: 49329; 81025; A9270; J0690; J1100; J1170; J1885; J2250; J2405; J2710; J3010; J7120; 00840; J2704

== ENCOUNTER 2017-12-30 00:20 | Emergency (ER) | payer MEDICAID ==
[2017-12-30 00:33] VITALS: BP 128/83
--- NOTE | 2017-12-30 01:31 | EDM.PDOC ---
ED HPI GENERAL MEDICAL PROBLEM - General Chief Complaint: ENT Problem Stated Complaint: TOOTH PAIN Time Seen by Provider: 12/30/17 00:56 Source of Information: Reports: Patient, Old Records History Limitations: Reports: No Limitations - History of Present Illness INITIAL COMMENTS - FREE TEXT/NARRATIVE: The patient states that she saw her dentist this past 12/27/2017, and was told that she has a left upper and left lower cavity. She was told to stop using Anbesol, because it was injuring her gingiva. She states that she was prescribed clindamycin. She has an appointment on 02/09/2018 for a root canal of one tooth, and extraction of the other. She states that her dentist did not prescribe any pain medication, therefore the patient has been taking over-the- counter Aleve every 4-6 hours, with her most recent dose at 22:00 tonight. She now presents stating that the Aleve is ineffective, and she can't sleep. No recent fever. No oral drainage. Review of prior medical records finds that the patient has a history of numerous drug abuses, including to oxycodone. Left Oral/Mouth Pain Score (Numeric/FACES): 9 - Related Data Allergies Allergy/AdvReac Type Severity Reaction Status Date / Time amoxicillin [Amoxicillin] Allergy Unknown Rash Verified 12/30/17 00:33 Penicillins Allergy Unknown Hives Verified 12/30/17 00:33 [email or web address] Allergy Redness Verified 12/30/17 00:33 Home Meds: Home Meds ALPRAZolam [Xanax] 0.5 mg PO BID PRN 04/18/17 [History] ARIPiprazole [Abilify] 10 mg PO DAILY 04/18/17 [History] Albuterol [Proair HFA] 1 puff INH Q4H PRN 04/18/17 [History] Norgestrel-Ethinyl Estradiol [Elinest-28 Tablet] 1 tab PO DAILY 04/18/17 [ History] Omeprazole Magnesium [Prilosec] 10 mg PO DAILY 04/18/17 [History] buPROPion [Wellbutrin XL] 150 mg PO DAILY 04/18/17 [History] Ibuprofen 600 mg PO Q4HR PRN #30 tablet 04/19/17 [Rx] Naproxen 500 mg PO Q12H PRN #20 tablet 12/30/17 [Rx] Past Medical History HEENT History: Reports: Allergic Rhinitis, Impaired Vision Other HEENT History: wears glasses Respiratory History: Reports: Asthma Gastrointestinal History: Reports: PUD Genitourinary History: Reports: Renal Calculus, STD 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 teeth extraction), Tonsillectomy Female Surgical History: Reports: Section (02/12/2014, 02/24/2016) Musculoskeletal Surgical History: Reports: Ganglion Cyst (right wrist) Social & Family History - Family History Family Medical History: Noncontributory - Tobacco Use Smoking Status *Q: Current Every Day Smoker Years of Tobacco use: 11 Packs/Tins Daily: 0.5 - Caffeine Use Caffeine Use: Reports: Coffee, Soda - Alcohol Use Alcohol Use History: Yes Days Per Week of Alcohol Use: 0 Total Drinks Per Week Comment: History of alcohol abuse - Recreational Drug Use Recreational Drug Use: Yes Drug Use in Last 12 Months: Yes Recreational Drug Type: Reports: Cocaine, Ecstasy, Marijuana/Hashish, Methamphetamine, Oxycodone Recreational Drug Use Frequency: Not Used In Over 6 Months - Sexual History Other Sexual History Comment: Has IUD - Living Situation & Occupation Living situation: Reports: Single, with Significant Other (Ex-boyfriend), with Family (2 kids) 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 ED EXAM, ENT - Physical Exam Exam: See Below Exam Limited By: No Limitations General Appearance: Alert, WD/WN, No Apparent Distress Eye Exam: Bilateral Eye: Normal Inspection Ears: Normal External Exam, Normal Canal, Hearing Grossly Normal, Normal TMs Nose: Normal Inspection, Normal Mucousa, No Blood Mouth/Throat: Normal Inspection, Normal Lips, Normal Oropharynx, Other (Tooth # 1 absent. Teeth #16, 17 absent. Tooth #32 absent. No gingival swelling or suggestion of infection.) Head: Atraumatic, Normocephalic Neck: Normal Inspection, Supple, Non-Tender, Full Range of Motion. No: Lymphadenopathy (L), Lymphadenopathy (R) Course - Vital Signs Last Recorded V/S: Last Vital Signs Temp 36.5 C 12/30/17 00:30 Pulse 93 12/30/17 00:30 Resp 18 12/30/17 00:30 BP 128/83 12/30/17 00:30 Pulse Ox 100 12/30/17 00:30 - Re-Assessments/Exams Free Text/Narrative Re-Assessment/Exam: 12/30/17 01:26 The patient indicates both upper and lower left molar pain, likely teeth #15 and 18. On examination, I find no obvious abnormalities, and no gingival swelling. The patient is already on clindamycin per her dentist. The patient states that she is taking [id number] Aleve every 4-6 hours, which I pointed out is far in excess of the recommended dose. I am going to prescribe prescription-strength naproxen, but since she has been taking too much already, I am not going to give her any here tonight. I explained that we do not prescribe narcotics for dental pain from this emergency department. That is especially true since a) I do not find any abnormalities on physical exam and b ) the patient has a history of oxycodone abuse and c) the patient's own dentist , who is aware of the patient's dental condition better than I, elected to not prescribe any pain medication for the patient just a few days ago. Departure - Departure Time of Disposition: :31 Disposition: Home, Self-Care 01 Condition: Good Clinical Impression: Dentalgia - Discharge Information Prescriptions: Naproxen 500 mg PO Q12H PRN #20 tablet PRN Reason: Pain Referrals: Megan Jeffries PA-C [Primary Care Provider] - Forms: ED Department Discharge Additional Instructions: You were seen in the emergency room for upper and lower left-sided dental pain. On physical examination, no acute abnormality or signs of infection was seen. Because you have been taking [id number] Aleve far in excess of the recommended dosage, you were not given additional Aleve in the ER, however, a prescription for perception-strength naproxen has been sent to the [facility] located [facility] grocery store. Take one tablet every 12 hours, with food, as prescribed. DO NOT take it more often than every 12 hours. Continue to take the clindamycin that was prescribed by her dentist, as prescribed. Follow-up with your dentist at the next available appointment to discuss pain control options. If any other problems, please do not hesitate to return to the ER.
== END 2017-12-30 01:43 | disposition home or self-care (01) ==
LOC: JD.ED 00:20
DX: K08.89 Other specified disorders of teeth and supporting structures (principal); J45.909 Unspecified asthma, uncomplicated; F17.210 Nicotine dependence, cigarettes, uncomplicated; Z88.1 Allergy status to other antibiotic agents; Z88.0 Allergy status to penicillin; Z79.899 Other long term (current) drug therapy
CPT/HCPCS: 99283

== ENCOUNTER 2018-06-30 00:29 | Emergency (ER) | payer MEDICAID ==
[2018-06-30 00:41] VITALS: BP 114/71
--- NOTE | 2018-06-30 00:44 | EDM.PDOC ---
ED HPI GENERAL MEDICAL PROBLEM - General Chief Complaint: Respiratory Problem Stated Complaint: COUGHING/SOB Time Seen by Provider: 06/30/18 00:40 - History of Present Illness INITIAL COMMENTS - FREE TEXT/NARRATIVE: 27 yo female presents emergency room with frequent cough and shortness of breath. This is been getting worse over the last several days. But really quite severe tonight to the point where she can't see much of anything without coughing frequently. The patient's 29 weeks she smokes and she has a history of asthma. On a normal day she does not need her inhaler lately she's been using her albuterol inhaler every few hours. She also has a yellow inhaler but is not sure what that one is. She has not had problems with this and sees Dr. Ramirez for this. Throat Pain Score (Numeric/FACES): 9 - Related Data Allergies Allergy/AdvReac Type Severity Reaction Status Date / Time amoxicillin [Amoxicillin] Allergy Unknown Rash Verified 06/30/18 00:41 Penicillins Allergy Unknown Hives Verified 06/30/18 00:41 cefdinir Allergy Redness Verified 06/30/18 00:41 Home Meds: Home Meds ALPRAZolam [Xanax] 0.5 mg PO BID PRN 04/18/17 [History] ARIPiprazole [Abilify] 10 mg PO DAILY 04/18/17 [History] Albuterol [Proair HFA] 1 puff INH Q4H PRN 04/18/17 [History] Omeprazole Magnesium [Prilosec] 10 mg PO DAILY 04/18/17 [History] buPROPion [Wellbutrin XL] 150 mg PO DAILY 04/18/17 [History] predniSONE [Prednisone] 60 mg PO Q24H #18 tablet 06/30/18 [Rx] Past Medical History - Past Health History Medical/Surgical History: Denies Medical/Surgical History HEENT History: Reports: Allergic Rhinitis, Impaired Vision Other HEENT History: wears glasses Cardiovascular History: Reports: None Respiratory History: Reports: Asthma Gastrointestinal History: Reports: PUD Other Gastrointestinal History: history of stomach ulcer treated with omeprozale Genitourinary History: Reports: Renal Calculus, STD Other Genitourinary History: Positive HPV, history of chlamydia. 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: 02/12/2014 & 02-24-2016, pelvic pain, breakthrough bleeing on OCPs, dysuria, irregular menses, menorrhagia Musculoskeletal History: Reports: Arthritis Neurological History: Reports: Concussion, Migraines Psychiatric History: Reports: Addiction, Anxiety, Bipolar, Depression Other Psychiatric History: history of ETOH abuse Endocrine/Metabolic History: Reports: None Hematologic History: Reports: Anemia Immunologic History: Reports: None Oncologic (Cancer) History: Reports: None Dermatologic History: Reports: None - Infectious Disease History Infectious 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), Other (See Below) - Past Surgical History HEENT Surgical History: Reports: Adenoidectomy, Naso-Sinus Surgery (Deviated septum), Oral Surgery (Mr. 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 Denies: Sputum, Hemoptysis Cardiovascular: Reports: No Symptoms GI/Abdominal: Reports: Vomiting (She vomits intermittently after coughing) : Reports: No Symptoms Musculoskeletal: Reports: No Symptoms Skin: Reports: No Symptoms Neurological: Reports: No Symptoms Psychiatric: Reports: No Symptoms Hematologic/Lymphatic: Reports: No Symptoms Immunologic: Reports: No Symptoms ED EXAM, GENERAL - Physical Exam Exam: See Below Exam Limited By: No Limitations General Appearance: Alert, Mild Distress (From her shortness of breath) Ears: Normal External Exam, Normal Canal, Hearing Grossly Normal, Normal TMs Nose: Normal Inspection, Normal Mucosa, No Blood Throat/Mouth: Normal Inspection, Normal Lips, Normal Teeth, Normal Gums, Normal Oropharynx, Normal Voice, No Airway Compromise Head: Atraumatic, Normocephalic Neck: Normal Inspection, Supple, Non-Tender, Full Range of Motion Respiratory/Chest: Decreased Breath Sounds, Wheezing, Prolonged Expiration. No : Normal Breath Sounds, Crackles, Rales, Rhonchi Cardiovascular: Regular Rate, Rhythm, No Edema, No Murmur GI/Abdominal: Normal Bowel Sounds, Soft, Non-Tender Back Exam: Normal Inspection. No: CVA Tenderness (L), CVA Tenderness (R) Extremities: No Pedal Edema Neurological: Alert, Oriented Psychiatric: Normal Affect, Normal Mood Skin Exam: Warm, Dry, Intact, Normal Color, No Rash Course - Vital Signs Last Recorded V/S: Last Vital Signs Temp 37.4 C 06/30/18 00:37 Pulse 122 H 06/30/18 00:37 Resp 20 06/30/18 00:37 BP 114/71 06/30/18 00:37 Pulse Ox 99 06/30/18 03:30 - Orders/Labs/Meds Orders: Active Orders 24 hr Category Date Time Status RT Aerosol Therapy [RC] ASDIRECTED Care 06/30/18 00:55 Active RT Aerosol Therapy [RC] ASDIRECTED Care 06/30/18 02:05 Active RT Aerosol Therapy [RC] ASDIRECTED Care 06/30/18 03:30 Active RT Aerosol Therapy [RC] ASDIRECTED Care 06/30/18 03:31 Active Labs: Laboratory Tests 06/30/18 06/30/18 Range/Units 01:10 01:10 WBC 16.56 H (3.98-10.04) K/mm3 RBC 3.54 L (3.98-5.22) M/mm3 Hgb 11.2 (11.2-15.7) gm/L Hct 33.3 L (34.1-44.9) % MCV 94.1 (79.4-94.8) fl MCH 31.6 (25.6-32.2) pg MCHC 33.6 (32.2-35.5) g/dl RDW Std Deviation 42.2 (36.4-46.3) fL Plt Count 267 (182-369) K/mm3 MPV 9.1 L (9.4-12.3) fl Neutrophils % (Manual) 75 H (40-60) % Band Neutrophils % 0 (0-10) % Lymphocytes % (Manual) 22 (20-40) % Atypical Lymphs % 1 % Monocytes % (Manual) 2 (2-10) % Eosinophils % (Manual) 0 L (0.7-5.8) % Basophils % (Manual) 0 L (0.1-1.2) Platelet Estimate Adequate Plt Morphology Comment Normal Anisocytosis RBC Morph Comment Normal Sodium 136 (136-145) mEq/L Potassium 3.1 L (3.5-5.1) mEq/L Chloride 101 (98-107) mEq/L Carbon Dioxide 21 (21-32) mEq/L Anion Gap 17.1 H (5-15) BUN 4 L (7-18) mg/dL Creatinine 0.5 L (0.55-1.02) mg/dL Est Cr Clr Drug Dosing TNP Estimated GFR (MDRD) > 60 (>60) mL/min BUN/Creatinine Ratio 8.0 L (14-18) Glucose 96 (74-106) mg/dL Calcium 8.2 L (8.5-10.1) mg/dL Meds: Medications Discontinued Medications Generic Name Dose Route Start Last Admin Trade Name Johnathonq PRN Reason Stop Dose Admin Albuterol 2.5 mg 06/30/18 03:30 Proventil Neb Soln NEB 06/30/18 03:31 ONETIME ONE Albuterol/Ipratropium 3 ml 06/30/18 00:54 06/30/18 01:05 Duoneb 3.0-0.5 Mg/3 Ml NEB 06/30/18 00:55 3 ml ONETIME ONE Administration Albuterol/Ipratropium 3 ml 06/30/18 02:05 06/30/18 02:34 Duoneb 3.0-0.5 Mg/3 Ml NEB 06/30/18 02:06 3 ml ONETIME ONE Administration Albuterol/Ipratropium 3 ml 06/30/18 03:30 06/30/18 03:33 Duoneb 3.0-0.5 Mg/3 Ml NEB 06/30/18 03:31 3 ml ONETIME ONE Administration Methylprednisolone Sodium Succinate 80 mg 06/30/18 00:58 06/30/18 01:15 Solu-Medrol IVPUSH 06/30/18 00:59 80 mg ONETIME ONE Administration - Re-Assessments/Exams Free Text/Narrative Re-Assessment/Exam: 06/30/18 04:22 At this time the patient is doing much better she's received 80 mg of Solu- Medrol IV she's had 3 nebulizer treatments, of doing she is moving air without difficulty at this point we'll continue to observe her to make sure she is safe to go home she is strongly encouraged to quit smoking and to have very close follow-up with her regular OB. She normally sees Dr. Ramirez early in the patient 's care did have the opportunity discussed the case and disposition with Dr. Ramirez. Departure - Departure Time of Disposition: :28 Disposition: Home, Self-Care 01 Clinical Impression: Asthma exacerbation - Discharge Information Prescriptions: predniSONE [Prednisone] 60 mg PO Q24H #18 tablet Referrals: Ambreen Mai NP [Primary Care Provider] - Forms: ED Department Discharge Additional Instructions: Return to the emergency room with any questions problems worsening symptoms. Follow-up with your regular provider or Dr. Ramirez later today and again early next week. Use your albuterol MDI 2 puffs every 4 hours while awake for up to one week after you're completely better. You have been started on prednisone take this daily starting today soon as you get the prescription filled then every morning thereafter until all gone. - My Orders Last 24 Hours: My Active Orders 06/30/18 00:55 RT Aerosol Therapy [RC] ASDIRECTED 06/30/18 02:05 RT Aerosol Therapy [RC] ASDIRECTED 06/30/18 03:30 RT Aerosol Therapy [RC] ASDIRECTED 06/30/18 03:31 RT Aerosol Therapy [RC] ASDIRECTED - Assessment/Plan Last 24 Hours: My Active Orders 06/30/18 00:55 RT Aerosol Therapy [RC] ASDIRECTED 06/30/18 02:05 RT Aerosol Therapy [RC] ASDIRECTED 06/30/18 03:30 RT Aerosol Therapy [RC] ASDIRECTED 06/30/18 03:31 RT Aerosol Therapy [RC] ASDIRECTED
[2018-06-30] MEDS ORDERED: Albuterol/Ipratropium 3.0-0.5 MG/3 ML Neb Soln NEB ONE ×3 (00:54→03:30)
[2018-06-30] MEDS ORDERED: methylPREDNISolone Sodium Succinate 125 MG/2 ML SDV IVPUSH ONE (00:58)
[2018-06-30] MEDS ORDERED: Albuterol 0.083% 2.5 MG/3 ML Neb Soln NEB ONE (03:30)
== END 2018-06-30 05:40 | disposition home or self-care (01) ==
LOC: JD.ED 00:29
DX: J45.901 Unspecified asthma with (acute) exacerbation (principal); Z88.1 Allergy status to other antibiotic agents; Z88.0 Allergy status to penicillin; Z88.8 Allergy status to other drugs, medicaments and biological substances; Z79.899 Other long term (current) drug therapy
CPT/HCPCS: 36415; 80048; 85007; 85027; 94640; 96374; 99285; J2930; 99284; J7620-GY

== ENCOUNTER 2018-12-01 08:32 | Inpatient (IN) | payer MEDICAID ==
[~2018-12-01 08:32] MED LIST changes: +Dexamethasone 4 MG/ML SDV ONE; +Lidocaine 1% PF 2 ML SDV ONE; +Lidocaine 1%/Sod Bicarbonate in NS 8.4% 1 ML Syringe IDERM PRN; -Lidocaine 1%/Sod Bicarbonate in NS 8.4% 1 ML Syringe PRN; +Midazolam 1 MG/ML 2 ML SDV ONE; +Ondansetron 4 MG/2 ML SDV ONE; +Propofol 200 MG/20 ML SDV ONE; +Rocuronium 50 MG/5 ML Vial ONE; +ceFAZolin 1 GM Vial ONE; +fentaNYL 250 MCG/5 ML SDV ONE
[2018-12-01] MEDS ORDERED: Scopolamine 1.5 MG Transdermal Patch TOP ONE (08:49)
--- NOTE | 2018-12-01 08:51 | PCM.PREANE ---
Preanesthetic Assessment - Procedure Proposed Procedure: total abdominal hysterectomy with bs - Anesthesia/Transfusion/Family Hx Anesthesia History: Prior Anesthesia Reaction Type of Anesthesia Reaction: Excessive Nausea/Vomiting Family History of Anesthesia Reaction: No Transfusion History: No Prior Transfusion(s) Intubation History: Unknown - Review of Systems General: No Symptoms Pulmonary: No Symptoms, Other (used inhaler a week ago with stuffy nose and cough) Cardiovascular: No Symptoms Gastrointestinal: No Symptoms Neurological: No Symptoms Other: Reports: Sinus Problem (congestion ince june), Depression, Anxiety - Physical Assessment NPO Status Date: 12/01/18 NPO Status Time: 00:30 (ice cubes) Pulse: 87 O2 Sat by Pulse Oximetry: 97 Respiratory Rate: 16 Blood Pressure: 121/92 Temperature: 97.8 F Height: 5 ft Weight: 69.853 kg ASA Class: 2 Mental Status: Alert & Oriented x3 Airway Class: Mallampati = 1 Dentition: Reports: Normal Dentition Thyro-Mental Finger Breadths: 3 Mouth Opening Finger Breadths: 3 ROM/Head Extension: Full Lungs: Clear to Auscultation, Normal Respiratory Effort Cardiovascular: Regular Rate, Regular Rhythm - Lab Values: Laboratory Last Values WBC 6.79 K/mm3 (3.98-10.04) 11/29/18 13:40 RBC 4.76 M/mm3 (3.98-5.22) 11/29/18 13:40 Hgb 11.8 gm/L (11.2-15.7) 11/29/18 13:40 Hct 37.9 % (34.1-44.9) 11/29/18 13:40 MCV 79.6 fl (79.4-94.8) 11/29/18 13:40 MCH 24.8 pg (25.6-32.2) L 11/29/18 13:40 MCHC 31.1 g/dl (32.2-35.5) L 11/29/18 13:40 RDW Std Deviation 50.4 fL (36.4-46.3) H 11/29/18 13:40 Plt Count 354 K/mm3 (182-369) 11/29/18 13:40 MPV 9.6 fl (9.4-12.3) 11/29/18 13:40 Neut % (Auto) 42.1 % (34.0-71.1) 11/29/18 13:40 Lymph % (Auto) 47.6 % (19.3-51.7) 11/29/18 13:40 Oliver % (Auto) 6.5 % (4.7-12.5) 11/29/18 13:40 Eos % (Auto) 3.1 (0.7-5.8) 11/29/18 13:40 Baso % (Auto) 0.6 % (0.1-1.2) 11/29/18 13:40 Neut # (Auto) 2.86 K/mm3 (1.56-6.13) 11/29/18 13:40 Lymph # (Auto) 3.23 K/mm3 (1.18-3.74) 11/29/18 13:40 Oliver # (Auto) 0.44 K/mm3 (0.24-0.36) H 11/29/18 13:40 Eos # (Auto) 0.21 K/mm3 (0.04-0.36) 11/29/18 13:40 Baso # (Auto) 0.04 K/mm3 (0.01-0.08) 11/29/18 13:40 Creatinine 0.7 mg/dL (0.55-1.02) 11/29/18 13:40 Est Cr Clr Drug Dosing TNP 11/29/18 13:40 Estimated GFR (MDRD) > 60 mL/min (>60) 11/29/18 13:40 Urine Color Light yellow (Yellow) 11/29/18 13:40 Urine Appearance Clear (Clear) 11/29/18 13:40 Urine pH 6.5 (5.0-8.0) 11/29/18 13:40 Ur Specific [place] 1.010 (1.005-1.030) 11/29/18 13:40 Urine Protein Negative (Negative) 11/29/18 13:40 Urine Glucose (UA) Negative (Negative) 11/29/18 13:40 Urine Ketones Negative (Negative) 11/29/18 13:40 Urine Occult Blood Negative (Negative) 11/29/18 13:40 Urine Nitrite Negative (Negative) 11/29/18 13:40 Urine Bilirubin Negative (Negative) 11/29/18 13:40 Urine Urobilinogen 0.2 (0.2-1.0) 11/29/18 13:40 Ur Leukocyte Esterase Negative (Negative) 11/29/18 13:40 Urine HCG, Qual Negative (NEGATIVE) 11/29/18 13:40 Blood Type A POSITIVE 11/29/18 13:40 Gel Antibody Screen Negative 11/29/18 13:40 - Allergies Allergies/Adverse Reactions: Allergies Allergy/AdvReac Type Severity Reaction Status Date / Time amoxicillin [Amoxicillin] Allergy Unknown Rash Verified 11/30/18 13:49 Penicillins Allergy Unknown Hives Verified 11/30/18 13:49 cefdinir Allergy Redness Verified 11/30/18 13:49 - Blood Blood Available: No - Acknowledgements Anesthesia Type Planned: General Anesthesia Pt an Appropriate Candidate for the Planned Anesthesia: Yes Alternatives and Risks of Anesthesia Discussed w Pt/Guardian: Yes Pt/Guardian Understands and Agrees with Anesthesia Plan: Yes PreAnesthesia Questionnaire - Past Health History Medical/Surgical History: Denies Medical/Surgical History HEENT History: Reports: Allergic Rhinitis, Impaired Vision Other HEENT History: wears glasses Cardiovascular History: Reports: Heart Murmur 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 Respiratory History: Reports: Asthma, Bronchitis, Recurrent Other Respiratory History: hosp with bronchitis jun 2018 Gastrointestinal History: Reports: PUD Other Gastrointestinal History: history of stomach ulcer treated with omeprozale Genitourinary History: Reports: Renal Calculus, STD Other Genitourinary History: Positive HPV, history of chlamydia- negative 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/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 History: 02/12/2014 & 02-24-2016, pelvic pain, breakthrough bleeing on OCPs, dysuria, irregular menses, menorrhagia, positive HPV, high grade squamous intraepitelial cervical dysplasia Musculoskeletal History: Reports: Arthritis Neurological History: Reports: Concussion, Headaches, Chronic (constantly since baby- 4months ago), Migraines Psychiatric History: Reports: Addiction, Anxiety, Bipolar, Depression Other Psychiatric History: history of ETOH and drug abuse- treatment Endocrine/Metabolic History: Reports: None Hematologic History: Reports: Anemia Immunologic History: Reports: None Oncologic (Cancer) History: Reports: Cervix 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 Dermatologic History: Reports: None - Infectious Disease History Infectious 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), Other (See Below) - Past Surgical History Head Surgeries/Procedures: Reports: None HEENT Surgical History: Reports: Adenoidectomy, Naso-Sinus Surgery, Oral Surgery , Tonsillectomy Other HEENT Surgeries/Procedures: Septal deviation surgery, addenoidectomy, wisdom teeth removal Cardiovascular Surgical History: Reports: None Respiratory Surgical History: Reports: None GI Surgical History: Reports: EGD, Lysis of Adhesions Female Surgical History: Reports: Section, Cervical Cryotherapy Other Female Surgeries/Procedures: c/s x 2 01/2014 and 01/2016, carcinoma in situ of cervix Endocrine Surgical History: Reports: None Neurological Surgical History: Reports: None Musculoskeletal Surgical History: Reports: Ganglion Cyst Other Musculoskeletal Surgeries/Procedures:: cyst removed from wrist Oncologic Surgical History: Reports: None Dermatological Surgical History: Reports: None - SUBSTANCE USE Smoking Status *Q: Current Every Day Smoker Tobacco Use Within Last Twelve Months: Cigarettes Second Hand Smoke Exposure: Yes Days Per Week of Alcohol Use: 1 (rare) Recreational Drug Use History: No - HOME MEDS Home Medications: Home Meds Albuterol [Proair HFA] 1 - 2 puff INH Q4H PRN 04/18/17 [History] Albuterol [Proventil Neb Soln] 1 unit NEB Q4HR PRN 08/07/18 [History] Omeprazole Magnesium [Prilosec] 10 mg PO DAILY 08/07/18 [History] Acetaminophen/Butalbital/Caff [Fioricet 325-50-40 MG] 1 tab PO Q6H PRN 11/30/18 [History] buPROPion [Wellbutrin SR] 150 mg PO DAILY 11/30/18 [History] - CURRENT (IN HOUSE) MEDS Current Meds: Current Medications Lactated Ringer's (Ringers, Lactated) 1,000 mls @ 125 mls/hr IV ASDIRECTED JENNIFER Stop: 12/01/18 23:00 Lidocaine/Sodium Bicarbonate (Buffered Lidocaine 1% In Ns 8.4%) 0.25 ml IDERM ONETIME PRN PRN Reason: Prior to IV Start Stop: 12/01/18 23:00 Sodium Chloride (Saline Flush) 10 ml FLUSH ASDIRECTED PRN PRN Reason: Keep Vein Open Stop: 12/01/18 23:00 Discontinued Medications Cefazolin Sodium (Ancef) Confirm Administered Dose 2 gm .ROUTE .STK-MED ONE Stop: 12/01/18 08:03 Dexamethasone (Dexamethasone) Confirm Administered Dose 8 mg .ROUTE .STK-MED ONE Stop: 12/01/18 08:06 Fentanyl (Sublimaze) Confirm Administered Dose 250 mcg .ROUTE .STK-MED ONE Stop: 12/01/18 08:02 Lidocaine HCl (Xylocaine-Mpf 1%) Confirm Administered Dose 4 ml .ROUTE .STK-MED ONE Stop: 12/01/18 08:02 Midazolam HCl (Versed 1 Mg/Ml) Confirm Administered Dose 2 mg .ROUTE .STK-MED ONE Stop: 12/01/18 08:02 Ondansetron HCl (Zofran) Confirm Administered Dose 4 mg .ROUTE .STK-MED ONE Stop: 12/01/18 08:02 Propofol (Diprivan 20 Ml) Confirm Administered Dose 200 mg .ROUTE .STK-MED ONE Stop: 12/01/18 08:02 Rocuronium [place] (Zemuron) Confirm Administered Dose 50 mg .ROUTE .STK-MED ONE Stop: 12/01/18 08:02
[2018-12-01] MEDS ORDERED: HYDROmorphone 0.5 MG/0.5 ML Syringe ONE ×2 (09:55→10:09)
[2018-12-01] MEDS ORDERED: Ketamine 500 mg/10 ML MDV ONE (09:56)
[2018-12-01] MEDS: Bupivacaine 0.5% 30 ML SDV ONE ×2 (10:00→10:24)
[2018-12-01] MEDS ORDERED: Ondansetron 4 MG/2 ML SDV IVPUSH PRN (10:13)
[2018-12-01] MEDS ORDERED: HYDROmorphone 0.5 MG/0.5 ML Syringe IVPUSH PRN (10:13)
[2018-12-01] MEDS ORDERED: Neostigmine Methylsulfate 1 MG/ML 5 ML Syringe ONE (10:23)
[2018-12-01] MEDS ORDERED: Ketorolac 30 MG/ML SDV ONE (10:30)
--- NOTE | 2018-12-01 11:08 | PCM.POSTAN ---
POST ANESTHESIA ASSESSMENT - MENTAL STATUS Mental Status: Somnolent - VITAL SIGNS Pulse Rate: 84 SaO2: 95 Resp Rate: 15 Blood Pressure: 138/91 Temperature: 97.1 F - RESPIRATORY Respiratory Status: Respiratory Rate WNL, Airway Patent, O2 Saturation Stable, Supplemental Oxygen - CARDIOVASCULAR CV Status: Pulse Rate WNL, Blood Pressure Stable - GASTROINTESTINAL GI Status: No Symptoms - PAIN Pain Score: 0 (says yes to pain but is very sleepy) - POST OP HYDRATION Hydration Status: Adequate & Stable
[2018-12-01] MEDS ORDERED: Albuterol 0.083% 2.5 MG/3 ML Neb Soln NEB PRN (11:16)
[2018-12-01] MEDS ORDERED: Albuterol 6.7 GM Inhaler INH PRN (11:16)
[2018-12-01] MEDS ORDERED: HYDROmorphone 1 MG/ML Syringe IVPUSH PRN (11:17)
[2018-12-01] MEDS: fentaNYL 100 MCG/2 ML SDV IVPUSH PRN ×2 (11:18→11:32)
--- NOTE | 2018-12-01 11:26 | PCM.OPNOTE ---
- General Post-Op/Procedure Note Date of Surgery/Procedure: 12/01/18 Operative Procedure(s): Total abdominal hysterectomy with bilateral salpingectomy Findings: Moderate scarring in the anterior abdominal wall. Uterus tubes and ovaries were functional however. No other abnormalities noted. Pre Op Diagnosis: 1. Persistent SANDY-1. 2. Dysmenorrhea. 3. Menorrhagia Post-Op Diagnosis: Same Anesthesia Technique: General ET Tube Other Anesthesia Type: Marcaine 0.5%20 mL local Primary Surgeon: Milad Ramirez Secondary Surgeon: Adi Love Anesthesia Provider: Aaron Schilling Reason Apprenticeship Consultant Was Necessary: Retraction, assistance, patient safety, quantity of care. Role of Apprenticeship Consultant: Same Pathology: Uterus and bilateral fallopian tubes as 1 specimen. Fluid Replacement, Intraop: 1,100 Output, Urine Amount: 500 EBL in mLs: 200 Drain/Tube Comments:: Indwelling bladder catheter Complications: None Condition: Good Free Text/Narrative:: Surgery duration: 50 minutes procedure: After adequate consent was obtained, the patient was taken to the operating room. She was given 2 g of Ancef IV for infection prophylaxis. She had sequential compression stockings placed for DVT prophylaxis. She is administered general endotracheal anesthesia. After adequate administration of anesthesia patient was placed in a frog-leg position and was prepped vaginally and abdominally in the routine fashion. Stallworth catheter was placed. Patient's abdomen was then opened through her old Pfannenstiel skin incision scar. Old scar was removed and as it was somewhat hypertrophic. The incision was carried down through skin, subcutaneous and fascial layers. Severe and dense adhesions/ scar tissue were apparent. Abdominal cavity was entered without problems. An Sd self-retaining retractor was placed. The uterus was elevated with a double-tooth tenaculum at the fundus. Using a Enseal vessel closure device the fallopian tube mesosalpinx was taken down on the patient's left side. Ovaries were conserved per patient desire. The ovarian ligament, round ligament, broad ligament were then taken down in a routine stepwise fashion using the vessel closure system. Done on the right side. The cardinal ligaments and taken down on each side to the level of the to the cervix. The angles of the vagina were then crossclamped using Garfield clamps 2 these pedicles were cut and were suture ligated with Garfield stitch of #1 Vicryl. A short running locked suture was then placed in the mid incision to complete the closure. Hemostasis was confirmed at this time. The pelvis was irrigated with fluid aspirated. The one sponge been placed was removed. The abdominal was then closed. The fascia was closed with a running suture of #1 PDS from angle to angle. The subcutaneous area was closed with 2 layers of Monocryl suture first an interrupted layer and second a running layer reapproximating the skin edges closer to allow for better subcuticular suture closure. Subcuticular closure was then undertaken using 3-0 Monocryl suture on the Gustavo needle. The incision was further asked made with Prineo mesh. The patient was awakened from general endotracheal anesthesia and was discharged from the operating room in good condition.
[2018-12-01] MEDS ORDERED: Lactated Ringers 1,000 ML IV SCH (11:30)
[2018-12-01] MEDS: Acetaminophen/oxyCODONE 325-5 MG Tab PO PRN ×3 (12:45→20:45)
[2018-12-01] MEDS ORDERED: Lactated Ringers 1,000 ML ONE (12:52)
--- NOTE | 2018-12-01 13:07 | PCM48HPAN ---
Post Anesthesia Note - EVALUATION WITHIN 48HRS OF ANESTHETIC Vital Signs in Normal Range: Yes Patient Participated in Evaluation: Yes Respiratory Function Stable: Yes Airway Patent: Yes Cardiovascular Function Stable: Yes Hydration Status Stable: Yes Pain Control Satisfactory: Yes Nausea and Vomiting Control Satisfactory: Yes Mental Status Recovered: Yes (patient discharged but spoke to her prior) Pulse Rate: 65 Resp Rate: 14 Temperature: 97.1 F Blood Pressure: 122/68
[2018-12-01] MEDS: Ondansetron 4 MG/2 ML SDV IVPUSH PRN (15:22)
[2018-12-01] MEDS: Simethicone 80 MG Tab.Chew PO SCH ×2 (18:12→21:50)
[2018-12-01] MEDS: Ibuprofen 600 MG Tab PO PRN (18:12)
[2018-12-01] MEDS: Docusate Sodium 100 MG Cap PO SCH (20:50)
[2018-12-02] MEDS: Acetaminophen/oxyCODONE 325-5 MG Tab PO PRN ×3 (01:06→09:49)
[2018-12-02] MEDS: Ibuprofen 600 MG Tab PO PRN ×2 (04:22→09:49)
[2018-12-02] MEDS: Simethicone 80 MG Tab.Chew PO SCH ×2 (07:00→10:57)
--- NOTE | 2018-12-02 07:06 | PCM.SN ---
- Free Text/Narrative Note: Postoperative day one: Patient is doing well. Pain is under reasonable control with Percocet and ibuprofen. She has had good urine output. Stallworth catheters in place until this a.m. She is taking by mouth fluids well. I will signs stable. Patient is afebrile. Lungs are clear with good breath sounds in all lung [place]isi. Cardiovascular exam shows regular and rhythm without murmurs. Incision appears to be dry and healing well. Prineo Mesh is in place. Legs nontender. Hemoglobin is 10.1 down from 11.8 yesterday. Platelets are 380,000. Assessment: Postoperative day 1 doing well. Status post total abdominal hysterectomy with bilateral salpingectomy. Plan: Increase activity, diet, discontinue IV when tolerating fluids well. Consider discharge home later today.
[2018-12-02 08:05] VITALS: BP 117/52
[2018-12-02] MEDS: Docusate Sodium 100 MG Cap PO SCH (08:10)
[2018-12-02] MEDS: Ondansetron 4 MG/2 ML SDV IVPUSH PRN (08:27)
[2018-12-02] MEDS ORDERED: buPROPion 150 MG Tab.SR PO SCH (09:00)
--- NOTE | 2018-12-02 11:18 | PCM.DCSUM1 ---
Discharge Summary - Hospital Course Free Text/Narrative:: Patient underwent a JOY with BS on 12/01/18 for: 1. Persistent SANDY-1. 2. Dysmenorrhea. 3. Menorrhagia Post op recovery unremarkable. Diagnosis: Stroke: No - Discharge Data Discharge Date: 12/02/18 Discharge Disposition: Home, Self-Care 01 Condition: Good - Patient Summary/Data Operative Procedure(s) Performed: Total abdominal hysterectomy with bilateral salpingectomy - Patient Instructions Diet: Regular Diet as Tolerated Activity: As Tolerated (Pelvic rest. No driving or lifting > 15 # x one week.) Driving: May Drive Today Showering/Bathing: May Shower Wound/Incision Care: Keep Operative Site/Wound Site Clean and Dry Notify Provider of: Fever, Increased Pain, Swelling and Redness, Drainage - Discharge Plan Home Medications: Home Meds Albuterol [Proair HFA] 1 - 2 puff INH Q4H PRN 04/18/17 [History] Albuterol [Proventil Neb Soln] 1 unit NEB Q4HR PRN 08/07/18 [History] Omeprazole Magnesium [Prilosec] 10 mg PO DAILY 08/07/18 [History] Acetaminophen/Butalbital/Caff [Fioricet 325-50-40 MG] 1 tab PO Q6H PRN 11/30/18 [History] buPROPion [Wellbutrin SR] 150 mg PO DAILY 11/30/18 [History] Acetaminophen/oxyCODONE [Percocet 325-5 MG] 2 tab PO Q4H PRN tablet 12/02/18 [ Rx] Ibuprofen [Motrin] 600 mg PO Q6H PRN tablet 12/02/18 [Rx] - Discharge Summary/Plan Comment DC Time >30 min.: No Discharge Summary/Plan Comment: 1. Regular diet 2. RTC 4 weeks- Dr. Ramirez - Patient Data Vitals - Most Recent: Last Vital Signs Temp 36.9 C 12/02/18 08:00 Pulse 72 12/02/18 08:00 Resp 16 12/02/18 08:00 BP 117/52 L 12/02/18 08:00 Pulse Ox 95 12/02/18 08:00 Weight - Most Recent: 69.853 kg I&O - Last 24 hours: Intake & Output 12/01/18 12/02/18 12/02/18 22:59 06:59 14:59 Intake Total 240 300 Output Total 2000 1000 400 Balance -1760 -1000 -100 Lab Results - Last 24 hrs: Laboratory Results - last 24 hr 12/02/18 Range/Units 05:47 WBC 11.11 H (3.98-10.04) K/mm3 RBC 4.02 (3.98-5.22) M/mm3 Hgb 10.1 L (11.2-15.7) gm/L Hct 32.8 L (34.1-44.9) % MCV 81.6 (79.4-94.8) fl MCH 25.1 L (25.6-32.2) pg MCHC 30.8 L (32.2-35.5) g/dl RDW Std Deviation 52.3 H (36.4-46.3) fL Plt Count 380 H (182-369) K/mm3 MPV 9.4 (9.4-12.3) fl Neut % (Auto) 52.3 (34.0-71.1) % Lymph % (Auto) 36.7 (19.3-51.7) % [place] % (Auto) 9.2 (4.7-12.5) % Eos % (Auto) 1.4 (0.7-5.8) Baso % (Auto) 0.3 (0.1-1.2) % Neut # (Auto) 5.82 (1.56-6.13) K/mm3 Lymph # (Auto) 4.08 H (1.18-3.74) K/mm3 [place] # (Auto) 1.02 H (0.24-0.36) K/mm3 Eos # (Auto) 0.15 (0.04-0.36) K/mm3 Baso # (Auto) 0.03 (0.01-0.08) K/mm3 Med Orders - Current: Current Medications Albuterol (Proventil Hfa) 1 - 2 gm INH Q4H PRN PRN Reason: asthma symptoms Albuterol (Proventil Neb Soln) 2.5 mg NEB Q4H PRN PRN Reason: Dyspnea Bupropion HCl (Wellbutrin Sr) 150 mg PO DAILY [facility] Last Admin: 12/02/18 08:10 Dose: 150 mg Docusate Sodium (Colace) 100 mg PO BID [facility] Last Admin: 12/02/18 08:10 Dose: 100 mg Hydromorphone HCl (Dilaudid) 0.2 mg IVPUSH Q2H PRN PRN Reason: Pain (severe 7-10) Last Admin: 12/01/18 12:28 Dose: 0.2 mg Lactated Ringer's (Ringers, Lactated) 1,000 mls @ 125 mls/hr IV ASDIRECTED [facility] Ibuprofen (Motrin) 600 mg PO Q6H PRN PRN Reason: Pain (mild 1-3) Last Admin: 12/02/18 09:49 Dose: 600 mg Ondansetron HCl (Zofran) 4 mg IVPUSH Q4H PRN PRN Reason: Nausea/Vomiting Last Admin: 12/02/18 08:27 Dose: 4 mg Oxycodone/Acetaminophen (Percocet 325-5 Mg) 2 tab PO Q4H PRN PRN Reason: Pain (moderate 4-6) Last Admin: 12/02/18 09:49 Dose: 2 tab Simethicone (Simethicone) 80 mg PO 0700,1100,1700,2200 [facility] Last Admin: 12/02/18 10:57 Dose: Not Given Discontinued Medications Bupivacaine HCl (Marcaine 0.5%) Confirm Administered Dose 30 ml .ROUTE .STK-MED ONE Stop: 12/01/18 09:02 Last Admin: 12/01/18 10:00 Dose: 20 ml Cefazolin Sodium (Ancef) Confirm Administered Dose 2 gm .ROUTE .STK-MED ONE Stop: 12/01/18 08:03 Dexamethasone (Dexamethasone) Confirm Administered Dose 8 mg .ROUTE .STK-MED ONE Stop: 12/01/18 08:06 Fentanyl (Sublimaze) Confirm Administered Dose 250 mcg .ROUTE .STK-MED ONE Stop: 12/01/18 08:02 Fentanyl (Sublimaze) 50 mcg IVPUSH Q5M PRN PRN Reason: Pain Stop: 12/01/18 18:00 Last Admin: 12/01/18 11:32 Dose: 50 mcg Glycopyrrolate () Confirm Administered Dose 1 mg .ROUTE .STK-MED ONE Stop: 12/01/18 10:24 Hydromorphone HCl (Dilaudid) Confirm Administered Dose 1 mg .ROUTE .STK-MED ONE Stop: 12/01/18 09:56 Hydromorphone HCl (Dilaudid) Confirm Administered Dose 0.5 mg .ROUTE .STK-MED ONE Stop: 12/01/18 10:10 Hydromorphone HCl (Dilaudid) 0.5 mg IVPUSH Q10M PRN PRN Reason: Pain (severe 7-10) Stop: 12/01/18 14:00 Lactated Ringer's (Ringers, Lactated) 1,000 mls @ 125 mls/hr IV ASDIRECTED [facility]ENNIFER Stop: 12/01/18 23:00 Last Admin: 12/01/18 08:46 Dose: 125 mls/hr Lactated Ringer's (Ringers, Lactated) Confirm Administered Dose 1,000 mls @ as directed .ROUTE .STK-MED ONE Stop: 12/01/18 12:53 Ketamine HCl (Ketalar) Confirm Administered Dose 500 mg .ROUTE .STK-MED ONE Stop: 12/01/18 09:57 Ketorolac Tromethamine (Toradol) Confirm Administered Dose 30 mg .ROUTE .STK- MED ONE Stop: 12/01/18 10:31 Lidocaine HCl (Xylocaine-Mpf 1%) Confirm Administered Dose 4 ml .ROUTE .STK-MED ONE Stop: 12/01/18 08:02 Lidocaine/Sodium Bicarbonate (Buffered Lidocaine 1% In Ns 8.4%) 0.25 ml IDERM ONETIME PRN PRN Reason: Prior to IV Start Stop: 12/01/18 23:00 Last Admin: 12/01/18 08:46 Dose: 0.25 ml Midazolam HCl (Versed 1 Mg/Ml) Confirm Administered Dose 2 mg .ROUTE .STK-MED ONE Stop: 12/01/18 08:02 Neostigmine Methylsulfate (Neostigmine) Confirm Administered Dose 5 mg .ROUTE .STK-MED ONE Stop: 12/01/18 10:24 Ondansetron HCl (Zofran) Confirm Administered Dose 4 mg .ROUTE .STK-MED ONE Stop: 12/01/18 08:02 Ondansetron HCl (Zofran) 4 mg IVPUSH ONETIME PRN PRN Reason: Nausea/Vomiting Stop: 12/01/18 14:00 Propofol (Diprivan 20 Ml) Confirm Administered Dose 200 mg .ROUTE .STK-MED ONE Stop: 12/01/18 08:02 Rocuronium [place] (Zemuron) Confirm Administered Dose 50 mg .ROUTE .STK-MED ONE Stop: 12/01/18 08:02 Scopolamine (Transderm-Scop) 1.5 mg TOP ONETIME ONE Stop: 12/01/18 08:50 Last Admin: 12/01/18 08:55 Dose: 1.5 mg Sodium Chloride (Saline Flush) 10 ml FLUSH ASDIRECTED PRN PRN Reason: Keep Vein Open Stop: 12/01/18 23:00
== END 2018-12-02 11:30 | disposition home or self-care (01) | DRG 743 ==
LOC: JD.SDS 08:32 → JD.OB 11:17
PROVIDERS: ADMIT Obstetrics & Gynecology; ATTEND Obstetrics & Gynecology
PROC: 0UT90ZZ Resection of Uterus, Open Approach (ICD-10-PCS; principal; 2018-12-01)
PROC: 0UT70ZZ Resection of Bilateral Fallopian Tubes, Open Approach (ICD-10-PCS; principal; 2018-12-01)
DX: N87.0 Mild cervical dysplasia (principal); N94.6 Dysmenorrhea, unspecified; N92.0 Excessive and frequent menstruation with regular cycle; F41.9 Anxiety disorder, unspecified; J45.909 Unspecified asthma, uncomplicated; F31.9 Bipolar disorder, unspecified; N94.10 Unspecified dyspareunia; R10.2 Pelvic and perineal pain; G47.30 Sleep apnea, unspecified; F17.210 Nicotine dependence, cigarettes, uncomplicated; G43.909 Migraine, unspecified, not intractable, without status migrainosus; A63.0 Anogenital (venereal) warts; M19.90 Unspecified osteoarthritis, unspecified site; Z88.1 Allergy status to other antibiotic agents; Z88.0 Allergy status to penicillin; Z87.442 Personal history of urinary calculi; Z87.11 Personal history of peptic ulcer disease; Z79.899 Other long term (current) drug therapy; Z98.891 History of uterine scar from previous surgery; Z85.41 Personal history of malignant neoplasm of cervix uteri
CPT/HCPCS: 00840; 36415; 81003; 81025; 82565; 85025; 86850; 86900; 86901; A9270-GY; J0690; J1100; J1170; J1885; J2001; J2250; J2405; J2704; J2710; J3010; J3490; J7120

== ENCOUNTER 2020-02-20 20:36 | Emergency (ER) | payer MEDICAID, OTHER ==
[2020-02-20 20:48] VITALS: BP 125/80; PULSE 96
[2020-02-20] MEDS ORDERED: Sodium Chloride 0.9% 1,000 ML IV SCH (21:00)
[2020-02-20] MEDS ORDERED: Ondansetron 4 MG/2 ML SDV IVPUSH ONE (21:00)
[2020-02-20] MEDS ORDERED: Ketorolac 30 MG/ML SDV IVPUSH ONE (21:00)
[2020-02-20] MEDS ORDERED: diphenhydrAMINE 50 MG/ML SDV IVPUSH ONE (21:01)
--- NOTE | 2020-02-20 21:05 | EDM.PDOC ---
ED HPI GENERAL MEDICAL PROBLEM - General Chief Complaint: Headache Stated Complaint: MIGRAINE Time Seen by Provider: 02/20/20 20:52 Source of Information: Reports: Patient History Limitations: Reports: No Limitations - History of Present Illness INITIAL COMMENTS - FREE TEXT/NARRATIVE: Patient is a 29 year old female you presents to the ER with c/o a headache intermittently for the last 4 days. She does have a history of frequent headaches since she had her hysterectomy. She has had an MRI completed of her brain which showed no abnormalities. She reports nausea and vomiting associated with this headache which started this morning. She is sensitive to light and sound. States last night she was seeing "flashes of light ". She reports that this is very similar to her past headaches. She has been given a prescription for Fioricet which she took around 1400 this afternoon. She has not taken anything for pain since that time. Prior to this she reports taking ibuprofen, [place], and "a muscle relaxer. These medications do provide some relief, however symptoms return shortly thereafter. She denies any fever or chills, however states she does sometimes feel hot when she gets her headaches. 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, Other (see below) Other Treatments TARIFF SUPERVISOR: feorcet, muscle relaxer, norco Right Headache Pain Score (Numeric/FACES): 9 - Related Data Allergies Allergy/AdvReac Type Severity Reaction Status Date / Time amoxicillin [Amoxicillin] Allergy Unknown Rash Verified 02/20/20 20:47 Penicillins Allergy Unknown Hives Verified 02/20/20 20:47 [email or web address] Allergy Redness Verified 02/20/20 20:47 Home Meds: Home Meds Albuterol [Proair HFA] 1 - 2 puff INH Q4H PRN 04/18/17 [History] Albuterol [Proventil Neb Soln] 1 unit NEB Q4HR PRN 08/07/18 [History] Omeprazole Magnesium [Prilosec] 10 mg PO DAILY 08/07/18 [History] Acetaminophen/Butalbital/Caff [Fioricet 325-50-40 MG] 1 tab PO Q6H PRN 11/30/18 [History] buPROPion [Wellbutrin SR] 150 mg PO DAILY 11/30/18 [History] Ibuprofen [Motrin] 600 mg PO Q6H PRN tablet 12/02/18 [Rx] estradioL [Estradiol] 0.5 mg PO DAILY 02/20/20 [History] Past Medical History - Past Health History Medical/Surgical History: Denies Medical/Surgical History HEENT History: Reports: Allergic Rhinitis, Impaired Vision Other HEENT History: wears glasses Cardiovascular History: Reports: Heart Murmur 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 Respiratory History: Reports: Asthma, Bronchitis, Recurrent Other Respiratory History: hosp with bronchitis jun 2018 Gastrointestinal History: Reports: PUD Other Gastrointestinal History: history of stomach ulcer treated with omeprozale Genitourinary History: Reports: Renal Calculus, STD Other Genitourinary History: Positive HPV, history of chlamydia- negative 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: 02/12/2014 & 02-24-2016, pelvic pain, breakthrough bleeing on OCPs, dysuria, irregular menses, menorrhagia, positive HPV, high grade squamous intraepitelial cervical dysplasia Musculoskeletal History: Reports: Arthritis Neurological History: Reports: Concussion, Headaches, Chronic, Migraines Psychiatric History: Reports: Addiction, Anxiety, Bipolar, Depression Other Psychiatric History: history of ETOH and drug abuse- treatment Endocrine/Metabolic History: Reports: None Hematologic History: Reports: Anemia Immunologic History: Reports: None Oncologic (Cancer) History: Reports: Cervix 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 Dermatologic History: Reports: None - Infectious Disease History Infectious 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), Other (See Below) - Past Surgical History Head Surgeries/Procedures: Reports: None HEENT Surgical History: Reports: Adenoidectomy, Naso-Sinus Surgery, Oral Surgery , Tonsillectomy Other HEENT Surgeries/Procedures: Septal deviation surgery, addenoidectomy, wisdom teeth removal, recurrent sinus infections Cardiovascular Surgical History: Reports: None Respiratory Surgical History: Reports: None GI Surgical History: Reports: EGD, Lysis of Adhesions Female Surgical History: Reports: Section, Cervical Cryotherapy, Hysterectomy Other Female Surgeries/Procedures: c/s x 2 01/2014 and 01/2016, carcinoma in situ of cervix Endocrine Surgical History: Reports: None Neurological Surgical History: Reports: None Musculoskeletal Surgical History: Reports: Ganglion Cyst Other Musculoskeletal Surgeries/Procedures:: cyst removed from wrist Oncologic Surgical History: Reports: None Dermatological Surgical History: Reports: None Social & Family History - Family History Family Medical History: Noncontributory - Tobacco Use Smoking Status *Q: Current Every Day Smoker Years of Tobacco use: 13 Packs/Tins Daily: 0.5 - Caffeine Use Caffeine Use: Reports: Coffee, Energy Drinks, Soda, Tea - Recreational Drug Use Recreational Drug Use: No Drug Use in Last 12 Months: No - Sexual History Other Sexual History Comment: Has IUD - Living Situation & Occupation Living situation: Reports: Single, with Significant Other (Ex-boyfriend), with Family (2 kids) 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 - Physical Exam Exam: See Below Exam Limited By: No Limitations General Appearance: Alert, WD/WN, No Apparent Distress Respiratory/Chest: No Respiratory Distress, Lungs Clear, Normal Breath Sounds, No Accessory Muscle Use, Chest Non-Tender Cardiovascular: Normal Peripheral Pulses, Regular Rate, Rhythm, No Edema, No Gallop, No JVD, No Murmur, No Rub Neuro Exam (Abbreviated): Alert, Oriented, CN II-XII Intact, Normal Cognition, Normal Gait, Normal Reflexes, No Motor/Sensory Deficits Psychiatric: Normal Affect, Normal Mood Skin Exam: Warm, Dry, Intact, Normal Color, No Rash Course - Vital Signs Last Recorded V/S: Last Vital Signs Temp 96.9 F 02/20/20 20:43 Pulse 96 02/20/20 20:43 Resp 18 02/20/20 20:43 BP 125/80 02/20/20 20:43 Pulse Ox 95 02/20/20 20:43 - Orders/Labs/Meds Orders: Active Orders 24 hr Category Date Time Status Sodium Chloride 0.9% [Normal Saline] 1,000 ml Med 02/20/20 21:00 Active IV ASDIRECTED Medication Orders Sodium Chloride (Normal Saline) 1,000 mls @ 999 mls/hr IV ASDIRECTED [facility]ENNIFER Last Admin: 02/20/20 21:08 Dose: 999 mls/hr Meds: Medications Generic Name Dose Route Start Last Admin Trade Name Freq PRN Reason Stop Dose Admin Sodium Chloride 1,000 mls @ 999 mls/hr 02/20/20 21:00 02/20/20 21:08 Normal Saline IV 999 mls/hr ASDIRECTED JENNIFER Administration Discontinued Medications Generic Name Dose Route Start Last Admin Trade Name Romana PRN Reason Stop Dose Admin Diphenhydramine HCl 25 mg 02/20/20 21:01 02/20/20 21:08 Benadryl IVPUSH 02/20/20 21:02 25 mg ONETIME ONE Administration Hydromorphone HCl 0.5 mg 02/20/20 21:36 02/20/20 21:41 Dilaudid IVPUSH 02/20/20 21:37 0.5 mg ONETIME ONE Administration Ketorolac Tromethamine 30 mg 02/20/20 21:00 02/20/20 21:08 Toradol IVPUSH 02/20/20 21:01 30 mg ONETIME ONE Administration Ondansetron HCl 4 mg 02/20/20 21:00 02/20/20 21:08 Zofran IVPUSH 02/20/20 21:01 4 mg ONETIME ONE Administration - Re-Assessments/Exams Free Text/Narrative Re-Assessment/Exam: 02/20/20 21:37 Pts headache has improved with the medications given, but she still rates it a 4 /10. I have ordered dilaudid 0.5mg IV. 02/20/20 22:14 Patient's headache has resolved. We will discharge her home. Discharge instructions as documented. Departure - Departure Time of Disposition: 22:14 Disposition: Home, Self-Care 01 Condition: Good Clinical Impression: Migraine - Discharge Information *PRESCRIPTION DRUG MONITORING PROGRAM REVIEWED*: No *COPY OF PRESCRIPTION DRUG MONITORING REPORT IN PATIENT DEMETRIUS: No Instructions: Migraine Headache, [id number] Referrals: Ambreen Mai NP [Primary Care Provider] - Forms: ED Department Discharge Additional Instructions: You were seen in the emergency department today for a migraine headache for the last 4 days. While in the ER you received a liter of IV fluids, Toradol and Dilaudid for pain, Zofran for nausea, and Benadryl. This did significantly improve your symptoms. Recommend that you go home and rest in a quiet dark room. Follow-up with your primary care provider to discuss ongoing options for better control of your chronic migraines. Return to the ER as needed. Sepsis Event Note - Evaluation Sepsis Screening Result: No Definite Risk - Focused Exam Vital Signs: Vital Signs Temp Pulse Resp BP Pulse Ox 02/20/20 20:43 96.9 F 96 18 125/80 95 Date Exam was Performed: 02/20/20 Time Exam was Performed: 22:17 - My Orders Last 24 Hours: My Active Orders 02/20/20 21:00 Sodium Chloride 0.9% [Normal Saline] 1,000 ml IV ASDIRECTED - Assessment/Plan Last 24 Hours: My Active Orders 02/20/20 21:00 Sodium Chloride 0.9% [Normal Saline] 1,000 ml IV ASDIRECTED
[2020-02-20] MEDS ORDERED: HYDROmorphone 0.5 MG/0.5 ML Syringe IVPUSH ONE (21:36)
== END 2020-02-20 22:21 | disposition home or self-care (01) ==
LOC: JD.ED 20:36
DX: G43.909 Migraine, unspecified, not intractable, without status migrainosus (principal); R11.2 Nausea with vomiting, unspecified; F41.9 Anxiety disorder, unspecified; F31.9 Bipolar disorder, unspecified; K27.9 Peptic ulcer, site unspecified, unspecified as acute or chronic, without hemorrhage or perforation; J45.909 Unspecified asthma, uncomplicated; F17.210 Nicotine dependence, cigarettes, uncomplicated; Z88.0 Allergy status to penicillin; Z88.1 Allergy status to other antibiotic agents; Z79.899 Other long term (current) drug therapy
CPT/HCPCS: 96361; 96374; 96375; 99283; J1170; J1200; J1885; J2405; J7030

== ENCOUNTER 2020-09-14 23:20 | Emergency (ER) | payer MEDICAID ==
[2020-09-14 23:36] VITALS: BP 121/78; PULSE 75
[2020-09-14] MEDS ORDERED: Sodium Chloride 0.9% 10 ML Syringe FLUSH PRN (23:58)
[2020-09-14] MEDS ORDERED: Sulfamethoxazole/Trimethoprim 800-160 MG Tab PO ONE (23:59)
[2020-09-14] MEDS ORDERED: Doxycycline 100 MG Cap PO ONE (23:59)
[2020-09-15] MEDS ORDERED: cefTRIAXone 1 GM in Sodium Chloride 0.9% 100 ML IV ONE ×2
[2020-09-15] MEDS ORDERED: cefTRIAXone 1 GM, Lidocaine 1% 2.1 ML IM ONE ×2 (00:29)
--- NOTE | 2020-09-15 00:58 | EDM.PDOC ---
ED HPI GENERAL MEDICAL PROBLEM - General Chief Complaint: Skin Complaint Stated Complaint: SWOLLEN LT EYE, PAINFUL Time Seen by Provider: 09/14/20 23:49 Source of Information: Reports: Patient, RN Notes Reviewed - History of Present Illness INITIAL COMMENTS - FREE TEXT/NARRATIVE: 29 yr old female comes in with multiple infected lesions bilat face. This all started 3 to 4 days ago with just one or 2 spots that now has increased to many more around her mouth, chin, bilat face and forehead. No open drainage. No fever or chills. Nothing involving neck, trunk, upper or lower extrem. Left Face/Facial Pain Score (Numeric/FACES): 10 - Related Data Allergies Allergy/AdvReac Type Severity Reaction Status Date / Time amoxicillin [Amoxicillin] Allergy Unknown Rash Verified 09/14/20 23:36 Penicillins Allergy Unknown Hives Verified 09/14/20 23:36 [email or web address] Allergy Redness Verified 09/14/20 23:36 Home Meds: Home Meds Albuterol [Proair HFA] 1 - 2 puff INH Q4H PRN 04/18/17 [History] Albuterol [Proventil Neb Soln] 1 unit NEB Q4HR PRN 08/07/18 [History] Omeprazole Magnesium [Prilosec] 10 mg PO DAILY 08/07/18 [History] Acetaminophen/Butalbital/Caff [Fioricet 325-50-40 MG] 1 tab PO Q6H PRN 11/30/18 [History] buPROPion [Wellbutrin SR] 150 mg PO DAILY 11/30/18 [History] Ibuprofen [Motrin] 600 mg PO Q6H PRN tablet 12/02/18 [Rx] estradioL [Estradiol] 0.5 mg PO DAILY 02/20/20 [History] Doxycycline [Vibra-Tabs] 100 mg PO Q12HR #28 tab 09/15/20 [Rx] Mupirocin Oint [Bactroban Oint] 22 gm .XX BID #1 tube 09/15/20 [Rx] Sulfamethoxazole/Trimethoprim [Bactrim Ds Tablet] 1 each PO Q12HR #14 tablet 09/15/20 [Rx] Past Medical History - Past Health History Medical/Surgical History: Denies Medical/Surgical History HEENT History: Reports: Allergic Rhinitis, Impaired Vision Other HEENT History: wears glasses Cardiovascular History: Reports: Heart Murmur 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 Respiratory History: Reports: Asthma, Bronchitis, Recurrent Other Respiratory History: hosp with bronchitis jun 2018 Gastrointestinal History: Reports: PUD Other Gastrointestinal History: history of stomach ulcer treated with omeprozale Genitourinary History: Reports: Renal Calculus, STD Other Genitourinary History: Positive HPV, history of chlamydia- negative 03/07/18 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: 02/12/2014 & 02-24-2016, pelvic pain, breakthrough bleeing on OCPs, dysuria, irregular menses, menorrhagia, positive HPV, high grade squamous intraepitelial cervical dysplasia Musculoskeletal History: Reports: Arthritis Neurological History: Reports: Concussion, Headaches, Chronic, Migraines Psychiatric History: Reports: Addiction, Anxiety, Bipolar, Depression Other Psychiatric History: history of ETOH and drug abuse- treatment Endocrine/Metabolic History: Reports: None Hematologic History: Reports: Anemia Immunologic History: Reports: None Oncologic (Cancer) History: Reports: Cervix 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 Dermatologic History: Reports: None - Infectious Disease History Infectious 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), Other (See Below) - Past Surgical History Head Surgeries/Procedures: Reports: None HEENT Surgical History: Reports: Adenoidectomy, Naso-Sinus Surgery, Oral Surgery, Tonsillectomy Other HEENT Surgeries/Procedures: Septal deviation surgery, addenoidectomy, wisdom teeth removal, recurrent sinus infections Cardiovascular Surgical History: Reports: None Respiratory Surgical History: Reports: None GI Surgical History: Reports: EGD, Lysis of Adhesions Female Surgical History: Reports: Section, Cervical Cryotherapy, Hysterectomy Other Female Surgeries/Procedures: c/s x 2 01/2014 and 01/2016, carcinoma in situ of cervix Endocrine Surgical History: Reports: None Neurological Surgical History: Reports: None Musculoskeletal Surgical History: Reports: Ganglion Cyst Other Musculoskeletal Surgeries/Procedures:: cyst removed from wrist Oncologic Surgical History: Reports: None Dermatological Surgical History: Reports: None Social & Family History - Family History Family Medical History: No Pertinent Family History - Tobacco Use Tobacco Use Status *Q: Unknown Ever Used Tobacco - Caffeine Use Caffeine Use: Reports: Coffee, Energy Drinks, Soda, Tea - Sexual History Other Sexual History Comment: Has IUD - Living Situation & Occupation Living situation: Reports: Single, with Significant Other (Ex-boyfriend), with Family (2 kids) 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[employer]) ED ROS GENERAL - Review of Systems Review Of Systems: See Below Constitutional: Denies: Fever, Chills HEENT: Denies: Throat Pain Respiratory: Denies: Shortness of Breath, Cough Cardiovascular: Denies: Chest Pain GI/Abdominal: Denies: Abdominal Pain, Vomiting Musculoskeletal: Reports: No Symptoms Skin: Reports: Rash (facial) Neurological: Reports: No Symptoms ED EXAM, SKIN/RASH Exam: See Below General Appearance: Alert, Anxious Eye Exam: Bilateral Eye: PERRL Throat/Mouth: Normal Inspection Head: No: Facial Swelling Neck: Supple Respiratory/Chest: No Respiratory Distress, Lungs Clear Cardiovascular: Regular Rate, Rhythm Neurological: Alert, Oriented, No Motor/Sensory Deficits Skin: Warm, Dry, Normal Color, Rash (multiple infected lesions, erythematous, raised, papular around mouth, chin) Course - Vital Signs Last Recorded V/S: Last Vital Signs Temp 98.6 F 09/14/20 23:31 Pulse 75 09/14/20 23:31 Resp 16 09/14/20 23:31 BP 121/78 09/14/20 23:31 Pulse Ox 100 09/14/20 23:31 - Orders/Labs/Meds Meds: Medications Discontinued Medications Generic Name Dose Route Start Last Admin Trade Name Freq PRN Reason Stop Dose Admin Ceftriaxone Sodium 1 gm/ 0 gm 09/15/20 00:29 09/15/20 00:34 Lidocaine HCl 2.1 ml IM 09/15/20 00:30 1 inj ONETIME ONE Administration Doxycycline Hyclate 200 mg 09/14/20 23:59 09/15/20 00:28 Vibramycin PO 09/15/20 00:00 200 mg ONETIME ONE Administration Ceftriaxone Sodium 1 gm/ 100 mls @ 200 mls/hr 09/15/20 00:00 09/15/20 01:09 Sodium Chloride IV 09/15/20 00:29 Not Given ONETIME ONE Sodium Chloride 10 ml 09/14/20 23:58 Saline Flush FLUSH ASDIRECTED PRN Keep Vein Open Trimethoprim/Sulfamethoxazole 1 tab 09/14/20 23:59 09/15/20 00:29 Septra Ds PO 09/15/20 00:00 1 tab ONETIME ONE Administration Departure - Departure Time of Disposition: 00:52 Disposition: Home, Self-Care 01 Condition: Fair Clinical Impression: [place]etigo - Discharge Information Prescriptions: Sulfamethoxazole/Trimethoprim [Bactrim Ds Tablet] 1 each PO Q12HR #14 tablet Mupirocin Oint [Bactroban Oint] 22 gm .XX BID #1 tube Doxycycline [Vibra-Tabs] 100 mg PO Q12HR #28 tab Instructions: [place], Adult Referrals: Ambreen Mai NP [Primary Care Provider] - Forms: ED Department Discharge, ED Return to Work/School Form Additional Instructions: Doxycycline 100 mg twice daily for 2 weeks, Bactrim DS twice daily for 1 week, Bactroban ointment to areas of infection twice daily for 1 week, Follow up clinic if not much better within 4 to 5 days as expected. Return to ED as needed if symptoms worsening in any way Sepsis Event Note (ED) - Evaluation Sepsis Screening Result: No Definite Risk - Focused Exam Vital Signs: Vital Signs Temp Pulse Resp BP Pulse Ox 09/14/20 23:31 98.6 F 75 16 121/78 100
== END 2020-09-15 01:07 | disposition home or self-care (01) ==
LOC: JD.ED 23:20
DX: L01.00 Impetigo, unspecified (principal); J45.909 Unspecified asthma, uncomplicated; F41.9 Anxiety disorder, unspecified; F31.9 Bipolar disorder, unspecified; Z88.0 Allergy status to penicillin; Z88.1 Allergy status to other antibiotic agents; Z90.49 Acquired absence of other specified parts of digestive tract; Z90.710 Acquired absence of both cervix and uterus; Z79.899 Other long term (current) drug therapy
CPT/HCPCS: 96372; 99282; A9270; J0696; J2001

== ENCOUNTER 2020-09-16 22:05 | Emergency (ER) | payer MEDICAID ==
[2020-09-16 22:50] VITALS: BP 117/91; PULSE 79
--- NOTE | 2020-09-16 23:35 | EDM.PDOC ---
ED HPI GENERAL MEDICAL PROBLEM - General Chief Complaint: Skin Complaint Stated Complaint: CYST ON LT EYE Time Seen by Provider: 09/16/20 23:20 - History of Present Illness INITIAL COMMENTS - FREE TEXT/NARRATIVE: 29-year-old female presents the emergency room with skin complaint. Patient was seen here couple days ago with swollen left eye areas of what looks like impetigo and developing little either folliculitis or small abscesses on her face. Patient was appropriately started on Bactroban and trimethoprim sulfa. Patient has had decreased swelling around her left eye she can now open it and this is all working well however she is got a painful area over her left eyebrow. She is use warm compresses to the area and showers it a couple times a day but it is not getting better. Patient denies any fevers or chills she is upset with the discomfort she is having in the area. She has another area on her medial eyebrow on the left that is sore but not nearly as swollen as the lateral lesion. Patient denies any fevers or chills no systemic signs of illness. She describes a sensation of her skin being real irritable or with anything touching it it is not quite itch it is just hypersensitive. Left Eye Pain Score (Numeric/FACES): 9 - Related Data Allergies Allergy/AdvReac Type Severity Reaction Status Date / Time amoxicillin [Amoxicillin] Allergy Unknown Rash Verified 09/14/20 23:36 Penicillins Allergy Unknown Hives Verified 09/14/20 23:36 [email or web address] Allergy Redness Verified 09/14/20 23:36 Home Meds: Home Meds Albuterol [Proair HFA] 1 - 2 puff INH Q4H PRN 04/18/17 [History] Albuterol [Proventil Neb Soln] 1 unit NEB Q4HR PRN 08/07/18 [History] Omeprazole Magnesium [Prilosec] 10 mg PO DAILY 08/07/18 [History] Acetaminophen/Butalbital/Caff [Fioricet 325-50-40 MG] 1 tab PO Q6H PRN 11/30/18 [History] buPROPion [Wellbutrin SR] 150 mg PO DAILY 11/30/18 [History] Ibuprofen [Motrin] 600 mg PO Q6H PRN tablet 12/02/18 [Rx] estradioL [Estradiol] 0.5 mg PO DAILY 02/20/20 [History] Doxycycline [Vibra-Tabs] 100 mg PO Q12HR #28 tab 09/15/20 [Rx] Mupirocin Oint [Bactroban Oint] 22 gm .XX BID #1 tube 09/15/20 [Rx] Sulfamethoxazole/Trimethoprim [Bactrim Ds Tablet] 1 each PO Q12HR #14 tablet 09/15/20 [Rx] Acetaminophen/HYDROcodone [[place] 325-5 MG] 1 tab PO Q6H PRN #8 tablet 09/17/20 [Rx] Past Medical History - Past Health History Medical/Surgical History: Denies Medical/Surgical History HEENT History: Reports: Allergic Rhinitis, Impaired Vision Other HEENT History: wears glasses Cardiovascular History: Reports: Heart Murmur Other Cardiovascular History: systolic grade 10/01 Respiratory History: Reports: Asthma, Bronchitis, Recurrent Other Respiratory History: hosp with bronchitis jun 2018 Gastrointestinal History: Reports: PUD Other Gastrointestinal History: history of stomach ulcer treated with omeprozale Genitourinary History: Reports: Renal Calculus, STD Other Genitourinary History: Positive HPV, history of chlamydia- negative 03/07/18 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: 02/12/2014 & 02-24-2016, pelvic pain, breakthrough bleeing on OCPs, dysuria, irregular menses, menorrhagia, positive HPV, high grade squamous intraepitelial cervical dysplasia Musculoskeletal History: Reports: Arthritis Neurological History: Reports: Concussion, Headaches, Chronic, Migraines Psychiatric History: Reports: Addiction, Anxiety, Bipolar, Depression Other Psychiatric History: history of ETOH and drug abuse- treatment Endocrine/Metabolic History: Reports: None Hematologic History: Reports: Anemia Immunologic History: Reports: None Oncologic (Cancer) History: Reports: Cervix 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 Dermatologic History: Reports: None - Infectious Disease History Infectious 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), Other (See Below) - Past Surgical History Head Surgeries/Procedures: Reports: None HEENT Surgical History: Reports: Adenoidectomy, Naso-Sinus Surgery, Oral Surgery, Tonsillectomy Other HEENT Surgeries/Procedures: Septal deviation surgery, addenoidectomy, wisdom teeth removal, recurrent sinus infections Cardiovascular Surgical History: Reports: None Respiratory Surgical History: Reports: None GI Surgical History: Reports: EGD, Lysis of Adhesions Female Surgical History: Reports: Section, Cervical Cryotherapy, Hysterectomy Other Female Surgeries/Procedures: c/s x 2 01/2014 and 01/2016, carcinoma in situ of cervix Endocrine Surgical History: Reports: None Neurological Surgical History: Reports: None Musculoskeletal Surgical History: Reports: Ganglion Cyst Other Musculoskeletal Surgeries/Procedures:: cyst removed from wrist Oncologic Surgical History: Reports: None Dermatological Surgical History: Reports: None Social & Family History - Family History Family Medical History: No Pertinent Family History - Tobacco Use Tobacco Use Status *Q: Current Every Day Tobacco User Years of Tobacco use: 10 Packs/Tins Daily: 0.5 - Caffeine Use Caffeine Use: Reports: Coffee - Recreational Drug Use Recreational Drug Use: No - Sexual History Other Sexual History Comment: Has IUD - Living Situation & Occupation Living situation: Reports: Single, with Significant Other (Ex-boyfriend), with Family (2 kids) 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[employer]) ED ROS GENERAL - Review of Systems Review Of Systems: See Below Constitutional: Reports: No Symptoms HEENT: Reports: No Symptoms Respiratory: Reports: No Symptoms Cardiovascular: Reports: No Symptoms Endocrine: Reports: No Symptoms GI/Abdominal: Reports: No Symptoms ED EXAM, SKIN/RASH Exam: See Below Exam Limited By: No Limitations General Appearance: Alert, No Apparent Distress Eye Exam: Bilateral Eye: Normal Inspection Ears: Normal External Exam, Normal Canal, Hearing Grossly Normal, Normal TMs Nose: Normal Inspection, Normal Mucosa, No Blood Throat/Mouth: Normal Inspection, Normal Lips, Normal Teeth, Normal Gums, Normal Oropharynx, Normal Voice, No Airway Compromise Head: Other (He has some areas that almost look acne-like on her face the crustiness around her nose is much better the swelling around her left eye is much better however she is got a area of folliculitis in the eyebrow lateral aspect and a small area of swelling medial aspect the larger area on the lateral aspect is examined there is no fluctuant area nothing to drain at this point.) Neck: Normal Inspection. No: Lymphadenopathy (L), Lymphadenopathy (R) Respiratory/Chest: No Respiratory Distress, Lungs Clear, Normal Breath Sounds Cardiovascular: Regular Rate, Rhythm, No Edema, No Murmur Course - Vital Signs Last Recorded V/S: Last Vital Signs Temp 36.8 C 09/16/20 22:42 Pulse 79 09/16/20 22:42 Resp 20 09/16/20 22:42 BP 117/91 H 09/16/20 22:42 Pulse Ox 97 09/16/20 22:42 - Orders/Labs/Meds Meds: Medications Discontinued Medications Generic Name Dose Route Start Last Admin Trade Name Romana PRN Reason Stop Dose Admin Hydrocodone Bitart/Acetaminophen 1 tab 09/17/20 00:28 [place] 325-5 Mg PO 09/17/20 00:29 ONETIME ONE - Re-Assessments/Exams Free Text/Narrative Re-Assessment/Exam: 09/17/20 00:18 She has had 4 doses of antibiotics it is a static antibiotic you may take another 24 hours to really get into full swing. I would not change anything at this point she is to continue using the Bactroban. She is having some discomfort in this area we will give her a few hydrocodone to help with this. Have her prescription for some hydrocodone and give her 1 to take when she gets home. Departure - Departure Time of Disposition: 00:19 Disposition: Home, Self-Care 01 Clinical Impression: Folliculitis, Impetigo - Discharge Information Referrals: Ambreen Mai NP [Primary Care Provider] - Forms: ED Department Discharge Additional Instructions: Turn to the emergency room with any questions problems or worsening symptoms. Follow-up with your regular healthcare provider as needed. Continue taking the antibiotics as directed and as you have been doing. Continue the warm compresses every couple hours while awake. Sepsis Event Note (ED) - Evaluation Sepsis Screening Result: No Definite Risk - Focused Exam Vital Signs: Vital Signs Temp Pulse Resp BP Pulse Ox 09/16/20 22:42 36.8 C 79 20 117/91 H 97
[2020-09-17] MEDS ORDERED: Acetaminophen/HYDROcodone 325-5 MG Tab PO ONE (00:28)
== END 2020-09-17 00:45 | disposition home or self-care (01) ==
LOC: JD.ED 22:05
DX: L73.9 Follicular disorder, unspecified (principal); L01.00 Impetigo, unspecified; J45.909 Unspecified asthma, uncomplicated; F17.210 Nicotine dependence, cigarettes, uncomplicated; F32.9 Major depressive disorder, single episode, unspecified; Z88.1 Allergy status to other antibiotic agents; Z88.0 Allergy status to penicillin; Z79.899 Other long term (current) drug therapy
CPT/HCPCS: 99283; A9270

== ENCOUNTER 2021-09-13 15:12 | Emergency (ER) | payer MEDICAID, OTHER ==
[2021-09-13 15:24] VITALS: BP 138/84; PULSE 110
[2021-09-13] MEDS ORDERED: Ketorolac 60 MG/2 ML SDV IM ONE (15:45)
[2021-09-13] MEDS ORDERED: Cyclobenzaprine 10 MG Tab PO ONE (15:45)
--- NOTE | 2021-09-13 16:45 | EDM.PDOC ---
ED HPI GENERAL MEDICAL PROBLEM - General Chief Complaint: Back Pain or Injury Stated Complaint: BACK PAIN Time Seen by Provider: 09/13/21 15:28 Source of Information: Reports: Patient, RN Notes Reviewed History Limitations: Reports: No Limitations - History of Present Illness INITIAL COMMENTS - FREE TEXT/NARRATIVE: Patient is a 30-year-old female presenting to the emergency department with complaints of a 1 year history of back pain, worsening today. Reports pain is in her mid back. 1 year ago, she had x-rays and MRI completed at [facility] and states that she was told she has a bulging disc in her upper back and lower back but none that coincide with her area of discomfort. She has not followed up on her back pain since that time. States she worked yesterday and the pain woke her up around 5:00 this morning and she is not been able to sleep since. She has been taken Tylenol and ibuprofen for pain. Last medication she took was ibuprofen at 5 AM this morning. She denies any falls or new injuries. She has no bowel or bladder dysfunction. Her primary care provider is Minnie Mai NP. Lower Back Pain Score (Numeric/FACES): 10 - Related Data Allergies Allergy/AdvReac Type Severity Reaction Status Date / Time amoxicillin [Amoxicillin] Allergy Unknown Rash Verified 09/13/21 15:24 Penicillins Allergy Unknown Hives Verified 09/13/21 15:24 cefdinir Allergy Redness Verified 09/13/21 15:24 Home Meds: Home Meds Cyclobenzaprine [Flexeril] 10 mg PO TID PRN #10 tab 09/13/21 [Rx] Naproxen [Naprosyn] 500 mg PO Q12HR 5 Days #10 tab 09/13/21 [Rx] Past Medical History - Past Health History Medical/Surgical History: Denies Medical/Surgical History HEENT History: Reports: Allergic Rhinitis, Impaired Vision Other HEENT History: wears glasses Cardiovascular History: Reports: Heart Murmur 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 Respiratory History: Reports: Asthma, Bronchitis, Recurrent Other Respiratory History: hosp with bronchitis jun 2018 Gastrointestinal History: Reports: PUD Other Gastrointestinal History: history of stomach ulcer treated with omeprozale Genitourinary History: Reports: Renal Calculus, STD Other Genitourinary History: Positive HPV, history of chlamydia- negative 6/12/18 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: 02/12/2014 & 02-24-2016, pelvic pain, breakthrough bleeing on OCPs, dysuria, irregular menses, menorrhagia, positive HPV, high grade squamous intraepitelial cervical dysplasia Musculoskeletal History: Reports: Arthritis Neurological History: Reports: Concussion, Headaches, Chronic, Migraines Psychiatric History: Reports: Addiction, Anxiety, Bipolar, Depression Other Psychiatric History: history of ETOH and drug abuse- treatment Endocrine/Metabolic History: Reports: None Hematologic History: Reports: Anemia Immunologic History: Reports: None Oncologic (Cancer) History: Reports: Cervix 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 Dermatologic History: Reports: None - Infectious Disease History Infectious 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), Other (See Below) - Past Surgical History Head Surgeries/Procedures: Reports: None HEENT Surgical History: Reports: Adenoidectomy, Naso-Sinus Surgery, Oral Surgery, Tonsillectomy Other HEENT Surgeries/Procedures: Septal deviation surgery, addenoidectomy, wisdom teeth removal, recurrent sinus infections Cardiovascular Surgical History: Reports: None Respiratory Surgical History: Reports: None GI Surgical History: Reports: EGD, Lysis of Adhesions Female Surgical History: Reports: Section, Cervical Cryotherapy, Hysterectomy Other Female Surgeries/Procedures: c/s x 2 01/2014 and 01/2016, carcinoma in situ of cervix Endocrine Surgical History: Reports: None Neurological Surgical History: Reports: None Musculoskeletal Surgical History: Reports: Ganglion Cyst Other Musculoskeletal Surgeries/Procedures:: cyst removed from wrist Oncologic Surgical History: Reports: None Dermatological Surgical History: Reports: None Social & Family History - Family History Family Medical History: No Pertinent Family History - Tobacco Use Years of Tobacco use: 17 Packs/Tins Daily: 1 Second Hand Smoke Exposure: No - Caffeine Use Caffeine Use: Reports: Coffee, Energy Drinks, Soda - Recreational Drug Use Recreational Drug Use: Yes Recreational Drug Type: Reports: Marijuana/Hashish - Sexual History Other Sexual History Comment: Has IUD - Living Situation & Occupation Living situation: Reports: Single, with Significant Other (Ex-boyfriend), with Family (2 kids) 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[employer]) ED ROS GENERAL - Review of Systems Review Of Systems: See Below Constitutional: Reports: No Symptoms HEENT: Reports: No Symptoms Respiratory: Reports: No Symptoms Cardiovascular: Reports: No Symptoms Endocrine: Reports: No Symptoms GI/Abdominal: Reports: Nausea : Reports: No Symptoms Musculoskeletal: Reports: Back Pain Skin: Reports: No Symptoms Neurological: Reports: No Symptoms Psychiatric: Reports: No Symptoms Hematologic/Lymphatic: Reports: No Symptoms Immunologic: Reports: No Symptoms ED EXAM,LOWER BACK PAIN/INJURY - Physical Exam Exam: See Below Exam Limited By: No Limitations General Appearance: Alert, Mild Distress Respiratory/Chest: No Respiratory Distress, Lungs Clear, Normal Breath Sounds, No Accessory Muscle Use, Chest Non-Tender Cardiovascular: Normal Peripheral Pulses, Regular Rate, Rhythm, No Edema, No Gallop, No JVD, No Murmur, No Rub GI/Abdominal: Normal Bowel Sounds, Soft, Non-Tender, No Organomegaly, No Distention, No Abnormal Bruit, No Mass Back Exam: Normal Inspection, Vertebral Tenderness (T12-L2). No: Muscle Spasm, Paraspinal Tenderness Neurological: Alert, Normal Mood/Affect, Normal Dorsiflexion, Normal Plantar Flexion, No Motor/Sensory Deficits, Oriented x 3 Psychiatric: Normal Affect, Normal Mood Skin Exam: Warm, Dry, Intact, Normal Color, No Rash Course - Vital Signs Last Recorded V/S: Last Vital Signs Temp 97.1 F 09/13/21 15:23 Pulse 110 H 09/13/21 15:23 Resp 17 09/13/21 15:23 BP 138/84 09/13/21 15:23 Pulse Ox 98 09/13/21 15:23 - Orders/Labs/Meds Orders: Active Orders 24 hr Category Date Time Status Lumbar Spine 2 or 3V [CR] Stat Exams 09/13/21 15:44 Taken Thoracic Spine 3V [CR] Stat Exams 09/13/21 15:44 Taken Meds: Medications Discontinued Medications Generic Name Dose Route Start Last Admin Trade Name Freq PRN Reason Stop Dose Admin Cyclobenzaprine HCl 10 mg 09/13/21 15:45 09/13/21 15:59 Cyclobenzaprine 10 Mg Tab PO 09/13/21 15:46 10 mg ONETIME ONE Administration Ketorolac Tromethamine 60 mg 09/13/21 15:45 09/13/21 16:00 Ketorolac 60 Mg/2 Ml Sdv IM 09/13/21 15:46 60 mg ONETIME ONE Administration - Re-Assessments/Exams Free Text/Narrative Re-Assessment/Exam: Patient is a 30-year-old female presenting to the emergency department with complaints of a 1 year history of back pain worsening of symptoms today. She took ibuprofen 5 AM this morning. Exam, she has tenderness overlying the T12-L1 2 vertebrae. There is no paraspinal tenderness or muscle spasm palpable. I have ordered IM Toradol and Flexeril p.o. Will complete lumbar and thoracic spine x-rays. 09/13/21 16:57 Patient is feeling much better. X-rays did not show any acute abnormalities. Formal radiologist read is pending. We will discharge her home with prescription for Naprosyn and Flexeril. Recommend that she contact her primary care provider tomorrow to set up follow-up as if this is been going on for 1 year, she may benefit from physical therapy or possible MRI imaging. She is in agreement with this plan. Discharge instructions as documented. Departure - Departure Time of Disposition: 16:57 Disposition: Home, Self-Care 01 Condition: Good Clinical Impression: Back pain Qualifiers: Back pain location: low back pain Chronicity: chronic Back pain laterality: midline Sciatica presence: without sciatica Qualified Code(s): M54.50 - Low back pain, unspecified; G89.29 - Other chronic pain - Discharge Information *PRESCRIPTION DRUG MONITORING PROGRAM REVIEWED*: No *COPY OF PRESCRIPTION DRUG MONITORING REPORT IN PATIENT DEMETRIUS: No Prescriptions: Cyclobenzaprine [Flexeril] 10 mg PO TID PRN #10 tab PRN Reason: Muscle Spasm Naproxen [Naprosyn] 500 mg PO Q12HR 5 Days #10 tab Referrals: Ambreen Mai NP [Primary Care Provider] - Forms: ED Department Discharge Additional Instructions: Use the Naprosyn and Flexeril as prescribed. You may take Tylenol if needed in addition. Contact primary care provider tomorrow to set up follow-up and discuss ongoing management of chronic back pain. Return to ER as needed. Sepsis Event Note (ED) - Focused Exam Vital Signs: Vital Signs Temp Pulse Resp BP Pulse Ox 09/13/21 15:23 97.1 F 110 H 17 138/84 98 - My Orders Last 24 Hours: My Active Orders 09/13/21 15:44 Lumbar Spine 2 or 3V [CR] Stat Thoracic Spine 3V [CR] Stat - Assessment/Plan Last 24 Hours: My Active Orders 12/19/21 15:44 Lumbar Spine 2 or 3V [CR] Stat Thoracic Spine 3V [CR] Stat
--- NOTE | 2021-09-13 18:18 | CR ---
Thoracic spine: AP, lateral and swimmer's views of the thoracic spine were obtained. Comparison: Prior thoracic spine study of 11/23/12. Mild anterior wedge deformity is seen within the mid to lower thoracic spine. Scattered disc space narrowing is seen within the thoracic spine. Mild scoliosis is noted. Pedicles are intact. No subluxation or fracture is seen. Impression: 1. Scattered disc space narrowing. Mild anterior wedge deformity within the mid to lower thoracic spine which is stable. Scoliosis is seen. 2. Nothing acute is seen. Diagnostic code #2
--- NOTE | 2021-09-13 18:18 | CR ---
Lumbar spine: AP and lateral views of the lumbar spine were obtained. Comparison: Prior lumbar spine study of 11/23/12. Mild disc space narrowing is seen at L5-S1. Other disc spaces are fairly well preserved. Chronic spondylolytic defects are noted at L5-S1 with minimal spondylolisthesis which measures approximately 2.8 mm. Slight disc space narrowing is seen at T10-11 as well as at T8-9 and slightly at T9-10. Minimal scoliosis is noted. Pedicles are intact. Visualized transverse and spinous processes appear intact. Impression: 1. Mild disc space narrowing at L5-S1. Slight spondylolisthesis is seen at L5-S1 compatible with chronic spondylolytic defects. 2. Slight disc space narrowing within the lower thoracic spine. 3. Mild scoliosis. Diagnostic code #2
== END 2021-09-13 17:45 | disposition home or self-care (01) ==
LOC: JD.ED 15:12
DX: M54.50 Low back pain, unspecified (principal); G89.29 Other chronic pain; J45.909 Unspecified asthma, uncomplicated; Z72.0 Tobacco use; Z88.0 Allergy status to penicillin; Z88.1 Allergy status to other antibiotic agents
CPT/HCPCS: 72072; 72100; 96372; 99283; A9270; J1885

== ENCOUNTER 2021-12-06 03:36 | Emergency (ER) | payer OTHER ==
[2021-12-06 03:46] VITALS: BP 118/78; PULSE 112
[2021-12-06] MEDS ORDERED: predniSONE 20 MG Tab PO ONE (04:47)
[2021-12-06] MEDS ORDERED: Albuterol/Ipratropium 3.0-0.5 MG/3 ML Neb Soln NEB ONE (04:51)
[2021-12-06] MEDS ORDERED: Doxycycline 100 MG Cap PO ONE (06:52)
== END 2021-12-06 07:14 | disposition home or self-care (01) ==
LOC: JD.ED 03:36
DX: J18.9 Pneumonia, unspecified organism (principal); J45.909 Unspecified asthma, uncomplicated; Z88.0 Allergy status to penicillin; Z88.1 Allergy status to other antibiotic agents; Z72.0 Tobacco use; Z20.822 Contact with and (suspected) exposure to COVID-19
CPT/HCPCS: 71045; 87635; 94640; 99285; A9270; J7512; 99284; J7620-GY; U0002

== ENCOUNTER 2022-03-07 12:31 | Emergency (ER) | payer OTHER ==
[2022-03-07] MEDS ORDERED: Acetaminophen 325 MG Tab PO ONE (13:34)
[2022-03-07 14:28] VITALS: BP 118/68; PULSE 73
== END 2022-03-07 14:24 | disposition home or self-care (01) ==
LOC: JD.ED 12:31
DX: S00.212A Abrasion of left eyelid and periocular area, initial encounter (principal); F17.210 Nicotine dependence, cigarettes, uncomplicated; Z90.710 Acquired absence of both cervix and uterus; Z79.899 Other long term (current) drug therapy; Z88.0 Allergy status to penicillin; Z88.1 Allergy status to other antibiotic agents; Y04.0XXA Assault by unarmed brawl or fight, initial encounter; Y99.0 Civilian activity done for income or pay
CPT/HCPCS: 70150; 99284; A9270; 99283

== ENCOUNTER 2022-09-02 20:09 | Emergency (ER) | payer OTHER ==
[2022-09-02] MEDS ORDERED: Sulfamethoxazole/Trimethoprim 800-160 MG Tab PO ONE (23:08)
[2022-09-02 23:39] VITALS: BP 117/72; PULSE 82
== END 2022-09-02 23:39 | disposition home or self-care (01) ==
LOC: JD.ED 20:09
DX: L03.115 Cellulitis of right lower limb (principal); J45.909 Unspecified asthma, uncomplicated; Z72.0 Tobacco use; Z88.0 Allergy status to penicillin; Z88.1 Allergy status to other antibiotic agents
CPT/HCPCS: 36415; 84550; 85025; 99283; A9270

== ENCOUNTER 2022-11-12 16:29 | Emergency (ER) | payer OTHER ==
[2022-11-12 16:55] VITALS: BP 122/83; PULSE 93
[2022-11-12] MEDS ORDERED: diphenhydrAMINE 50 MG Cap PO ONE (18:20)
[2022-11-12] MEDS ORDERED: HYDROmorphone 1 MG/ML Syringe IM ONE (18:20)
[2022-11-12] MEDS ORDERED: cefTRIAXone 1 GM Vial IM ONE (18:51)
== END 2022-11-12 19:55 | disposition home or self-care (01) ==
LOC: JD.ED 16:29
DX: L03.211 Cellulitis of face (principal); F17.210 Nicotine dependence, cigarettes, uncomplicated; Z88.0 Allergy status to penicillin; Z88.1 Allergy status to other antibiotic agents; Z88.8 Allergy status to other drugs, medicaments and biological substances
CPT/HCPCS: 96372; 99283; J0696; J1170; Q0163

== ENCOUNTER 2022-11-14 18:27 | Emergency (ER) | payer OTHER ==
[2022-11-14] MEDS ORDERED: Morphine 2 MG/ML SYRINGE IVPUSH ONE ×2 (19:18→20:28)
[2022-11-14] MEDS ORDERED: Lactated Ringers 1,000 ML IV ONE (19:18)
[2022-11-14] MEDS ORDERED: Ondansetron 4 MG/2 ML SDV IVPUSH ONE (19:18)
[2022-11-14] MEDS ORDERED: VANCOmycin 1.25 GM/250 ML 1.25 GM in Premix Bag 1 BAG IV ONE (20:05)
[2022-11-14 20:47] LABS: CORONAVIRUS COVID-19 NAA NEGATIVE (NEGATIVE)
[2022-11-14] MEDS ORDERED: Iopamidol 612 MG/ML 100 ML Bottle IVPUSH ONE (21:44)
[2022-11-14] MEDS ORDERED: Sodium Chloride 0.9% 100 ML IV SCH (21:45)
[2022-11-15] MEDS ORDERED: Doxycycline Monohydrate 100 MG Cap PO ONE (00:21)
[2022-11-15] MEDS ORDERED: Lactated Ringers 1,000 ML IV SCH (00:30)
[2022-11-15] MEDS ORDERED: Morphine 2 MG/ML SYRINGE IVPUSH ONE (06:11)
[2022-11-15 06:23] VITALS: BP 112/70; PULSE 100
== END 2022-11-15 07:20 | disposition home or self-care (01) ==
LOC: JD.ED 18:27
DX: A49.02 Methicillin resistant Staphylococcus aureus infection, unspecified site (principal); J45.909 Unspecified asthma, uncomplicated; Z72.0 Tobacco use; Z88.0 Allergy status to penicillin; Z88.8 Allergy status to other drugs, medicaments and biological substances; Z88.1 Allergy status to other antibiotic agents; Z79.899 Other long term (current) drug therapy; Z20.822 Contact with and (suspected) exposure to COVID-19
CPT/HCPCS: 0240U; 36415; 70491; 80053; 80202; 83605; 85025; 87040; 87641; 96361; 96365; 96366; 96375; 96376; 99284; A9270; J2270; J2405; J3370; J7050; J7120; Q9967

== ENCOUNTER 2023-03-02 19:07 | Emergency (ER) | payer OTHER ==
[2023-03-02] MEDS ORDERED: Sodium Chloride 0.9% 10 ML Syringe FLUSH PRN (19:45)
[2023-03-02] MEDS ORDERED: Ketorolac 30 MG/ML SDV IVPUSH ONE (19:45)
[2023-03-02 20:07] LABS: HEMATOCRIT 41.8 % (34.1-44.9); MEAN CORPUSCULAR HEMOGLOBIN 31.3 pg (25.6-32.2); MEAN CORPUSCULAR HGB CONC 33.5 g/dl (32.2-35.5); MEAN CORPUSCULAR VOLUME 93.5 fl (79.4-94.8); MEAN PLATELET VOLUME 9.2 fl (9.4-12.3); PLATELET COUNT,PLT 254 K/mm3 (182-369); RED BLOOD CELL COUNT 4.47 M/mm3 (3.98-5.22)
[2023-03-02 20:24] LABS: ALBUMIN 3.6 g/dl (3.4-5.0); ANION GAP 10.6 (5-15); BILIRUBIN TOTAL 0.5 mg/dL (0.2-1.0); BUN/CREATININE RATIO 4.4 (14-18); C-REACTIVE PROTEIN 7.4 mg/dL (<1.0); CALCIUM 8.7 mg/dL (8.5-10.1); CREATININE 0.9 mg/dL (0.55-1.02); EST CRCL DRUG DOSING (CG) 84.79 mL/min; POTASSIUM,K 3.6 mEq/L (3.5-5.1); PROTEIN TOTAL,TP 7.4 g/dl (6.4-8.2)
[2023-03-02 20:26] LABS: LACTIC ACID 0.5 mmol/L (0.4-2.0)
[2023-03-02 20:47] LABS: INR 0.99; PROTHROMBIN TIME 10.6 SECONDS (9.7-12.0)
[2023-03-02 20:55] LABS: APPEARANCE,URINE CLEAR (Clear); BILIRUBIN,URINE NEGATIVE (Negative); COLOR,URINE YELLOW (Yellow); GLUCOSE,URINE NEGATIVE (Negative); KETONES,URINE NEGATIVE (Negative); LEUKOCYTE ESTERASE,URINE NEGATIVE (Negative); NITRITE,URINE NEGATIVE (Negative); OCCULT BLOOD,URINE TRACE-INTACT (Negative); PH,URINE 6.5 (5.0-8.0); PROTEIN,URINE NEGATIVE (Negative); UROBILINOGEN,URINE 0.2 (0.2-1.0)
[2023-03-02 21:22] LABS: BAND PERCENT MAN 0 % (0-10); BASOPHILS PERCENT MAN 0 (0.1-1.2); EOSINOPHILS PERCENT MAN 1 % (0.7-5.8); LYMPHOCYTES % ATYPICAL MANUAL 0 %; LYMPHOCYTES PERCENT MAN 41 % (20-40); MONOCYTES PERCENT MAN 12 % (2-10)
[2023-03-02 21:23] LABS: PLATELET COUNT ESTIMATE ADEQUATE
[2023-03-02 21:32] LABS: RBC,URINE 0-5 /hpf (0-5); WBC,URINE 0-5 /hpf (0-5)
[2023-03-02 21:33] LABS: AMORPHOUS SEDIMENT,URINE FEW /hpf (NOT SEEN); BACTERIA,URINE FEW /hpf (FEW); MUCUS,URINE NOT SEEN /hpf (FEW)
[2023-03-02 23:09] VITALS: BP 110/62; PULSE 69
== END 2023-03-02 23:06 | disposition home or self-care (01) ==
LOC: JD.ED 19:07
DX: B33.8 Other specified viral diseases (principal); R21 Rash and other nonspecific skin eruption; Z88.0 Allergy status to penicillin; Z88.1 Allergy status to other antibiotic agents; Z88.8 Allergy status to other drugs, medicaments and biological substances
CPT/HCPCS: 36415; 74176; 80053; 81001; 83605; 85007; 85027; 85610; 86140; 87040; 96374; 99284; J1885

== ENCOUNTER 2023-11-15 23:04 | Emergency (ER) | payer OTHER ==
[2023-11-15 23:17] VITALS: PULSE 110
[2023-11-16 00:47] VITALS: BP 141/87
== END 2023-11-16 00:46 | disposition home or self-care (01) ==
LOC: JD.ED 23:04
DX: S53.402A Unspecified sprain of left elbow, initial encounter (principal); S54.22XA Injury of radial nerve at forearm level, left arm, initial encounter; G56.22 Lesion of ulnar nerve, left upper limb; F17.210 Nicotine dependence, cigarettes, uncomplicated; X50.0XXA Overexertion from strenuous movement or load, initial encounter; Z88.0 Allergy status to penicillin; Z88.1 Allergy status to other antibiotic agents; Z88.8 Allergy status to other drugs, medicaments and biological substances
CPT/HCPCS: 73080-26-LT; 73080-LT; 99283